=== PATIENT | female | born 1960 | race Caucasian/White ===

== ENCOUNTER → 2019-07-14 10:14 | Outpatient (BNVA) | payer MEDICAID, SELFPAY | PROVIDERS: Family Provider Nurse Practitioner; PCP Nurse Practitioner; Visit Provider Nurse Practitioner | DX: M79.7 Fibromyalgia (principal); E11.65 Type 2 diabetes mellitus with hyperglycemia; Z79.4 Long term (current) use of insulin; E03.9 Hypothyroidism, unspecified; I10 Essential (primary) hypertension; K21.0 Gastro-esophageal reflux disease with esophagitis; J06.9 Acute upper respiratory infection, unspecified; R05 Cough; R07.0 Pain in throat | CPT/HCPCS: 80053; 80061; 83036; 84443; 87804 ==

== ENCOUNTER → 2019-12-08 09:40 | Outpatient (BNVA) | payer MEDICAID, SELFPAY | PROVIDERS: Family Provider Family Medicine; PCP Nurse Practitioner; Visit Provider Nurse Practitioner | DX: E55.9 Vitamin D deficiency, unspecified (principal) | CPT/HCPCS: 82306 ==

== ENCOUNTER 2019-12-09 07:56 | Outpatient (CLI) | payer MEDICAID, SELFPAY ==
--- NOTE | 2019-12-09 08:01 | XR_ITS ---
WS: [id number] RIGHT FOREARM 2 VIEWS HISTORY: Right arm pain COMPARISON: None available. No fracture or dislocation. No foreign body or joint effusion. XR/XR forearm RT 2V [id number] IMPRESSION: Normal RIGHT forearm.
--- NOTE | 2019-12-09 08:01 | XR_ITS ---
WS: [id number] RIGHT HUMERUS: 2 VIEW(S) TECHNIQUE: AP and lateral. HISTORY: Right arm pain COMPARISON: None available. No acute fracture or dislocation. Mild AC joint arthritis. No joint or soft tissue abnormality. No foreign bodies and visualized upper thorax is unremarkable. XR/[place] [id number] IMPRESSION: Mild AC joint arthritis.
--- NOTE | 2019-12-09 08:01 | XR_ITS ---
WS: [id number] CERVICAL SPINE 3 VIEWS HISTORY: Right arm pain COMPARISON: None available. Mild straightening and slight reversal normal cervical lordosis centered at C4-5. Moderate disc space narrowing at C4-5, C5-6 and C6-7. Small endplate osteophytes at all levels. No fracture. Lateral masses are aligned. The odontoid is intact. Soft tissues are normal. XR/XR cervical spine 3V* [id number] IMPRESSION: Moderate degenerative spondylosis most significant from C4 through C6.
== END 2019-12-09 07:57 | disposition home or self-care (01) ==
LOC: RADWPI 07:58
PROVIDERS: Family Provider Nurse Practitioner; PCP Nurse Practitioner; Visit Provider Nurse Practitioner
DX: M79.601 Pain in right arm (principal); M47.812 Spondylosis without myelopathy or radiculopathy, cervical region; M13.821 Other specified arthritis, right elbow
CPT/HCPCS: 72040; 73060; 73090

== ENCOUNTER → 2019-12-31 09:48 | Outpatient (BNVA) | payer MEDICAID, SELFPAY | PROVIDERS: Family Provider Nurse Practitioner; PCP Nurse Practitioner; Visit Provider Nurse Practitioner | DX: E03.9 Hypothyroidism, unspecified (principal); E11.65 Type 2 diabetes mellitus with hyperglycemia; I10 Essential (primary) hypertension; G54.2 Cervical root disorders, not elsewhere classified | CPT/HCPCS: 80053; 80061; 83036; 83721; 84443 ==

== ENCOUNTER → 2020-04-03 11:35 | Outpatient (BNVA) | payer MEDICAID, SELFPAY | PROVIDERS: Family Provider Nurse Practitioner; PCP Nurse Practitioner; Visit Provider Nurse Practitioner | DX: E11.65 Type 2 diabetes mellitus with hyperglycemia (principal); I10 Essential (primary) hypertension; E78.2 Mixed hyperlipidemia; E03.9 Hypothyroidism, unspecified; M79.7 Fibromyalgia; G54.2 Cervical root disorders, not elsewhere classified; Z12.39 Encounter for other screening for malignant neoplasm of breast | CPT/HCPCS: 80053; 80061; 82043; 83036; 84443 ==

== ENCOUNTER 2020-06-12 10:40 | Outpatient (CLI) | payer MEDICAID, SELFPAY ==
--- NOTE | 2020-06-12 10:45 | MM_ITS ---
WS: [id number] BILATERAL DIGITAL SCREENING MAMMOGRAPHY WITH CAD CLINICAL INFORMATION: Z12.39 - Encounter for other screening for malignant neoplasm of breast HISTORY: Screening mammogram. Left breast soreness COMPARISON: TECHNIQUE: Bilateral CC and MLO views. FINDINGS: The breasts are composed of heterogeneous fibroglandular density tissue, which can limit the detectio n of small underlying mass lesions. No suspicious mass, asymmetry, calcifications, or architectural d istortion. No evidence of malignancy. MM/[place] [id number] IMPRESSION: BI-RADS: 1-Negative FOLLOW UP: 1 Year Follow-up Recommend return to annual screening mammography.
== END 2020-06-12 10:41 | disposition home or self-care (01) ==
LOC: RADSHAW 10:42
PROVIDERS: Family Provider Nurse Practitioner; PCP Nurse Practitioner; Visit Provider Nurse Practitioner
DX: Z12.31 Encounter for screening mammogram for malignant neoplasm of breast (principal)
CPT/HCPCS: 77067

== ENCOUNTER → 2020-06-16 09:51 | Outpatient (BNVA) | payer MEDICAID, SELFPAY | PROVIDERS: Family Provider Nurse Practitioner; PCP Nurse Practitioner; Visit Provider Nurse Practitioner | DX: Z20.828 Contact with and (suspected) exposure to other viral communicable diseases (principal); M79.7 Fibromyalgia; R68.83 Chills (without fever); J06.9 Acute upper respiratory infection, unspecified; I10 Essential (primary) hypertension | CPT/HCPCS: 85025; 87400; 87635 ==

== ENCOUNTER → 2020-07-17 10:17 | Outpatient (BNVA) | payer MEDICAID, SELFPAY | PROVIDERS: PCP Nurse Practitioner; Visit Provider Nurse Practitioner | DX: E11.65 Type 2 diabetes mellitus with hyperglycemia (principal); I10 Essential (primary) hypertension; E78.2 Mixed hyperlipidemia; E03.9 Hypothyroidism, unspecified; G54.2 Cervical root disorders, not elsewhere classified; M79.7 Fibromyalgia; K21.00 Gastro-esophageal reflux disease with esophagitis, without bleeding | CPT/HCPCS: 80053; 80061; 82043; 83036; 84443 ==

== ENCOUNTER → 2021-01-08 09:00 | Outpatient (BNVA) | payer MEDICAID, SELFPAY | PROVIDERS: PCP Nurse Practitioner; Visit Provider Nurse Practitioner | DX: E11.65 Type 2 diabetes mellitus with hyperglycemia (principal); I10 Essential (primary) hypertension; G54.2 Cervical root disorders, not elsewhere classified; E55.9 Vitamin D deficiency, unspecified; E78.2 Mixed hyperlipidemia; E03.9 Hypothyroidism, unspecified | CPT/HCPCS: 80053; 80061; 81000; 82043; 82306; 82607; 83036; 84443 ==

== ENCOUNTER → 2021-01-25 11:15 | Outpatient (BNVA) | payer MEDICAID, SELFPAY | PROVIDERS: PCP Nurse Practitioner; Visit Provider Nurse Practitioner | DX: Z20.822 Contact with and (suspected) exposure to COVID-19 (principal); R50.9 Fever, unspecified | CPT/HCPCS: 87635 ==

== ENCOUNTER → 2021-03-16 08:41 | Outpatient (BNVA) | payer MEDICAID, SELFPAY | PROVIDERS: PCP Nurse Practitioner; Visit Provider Nurse Practitioner Family | DX: R11.2 Nausea with vomiting, unspecified (principal); K52.9 Noninfective gastroenteritis and colitis, unspecified | CPT/HCPCS: 80053; 85025; 87177; 87209; 87506 ==

== ENCOUNTER → 2021-04-02 09:11 | Outpatient (BNVA) | payer MEDICAID, SELFPAY | PROVIDERS: PCP Nurse Practitioner; Visit Provider Nurse Practitioner | DX: E11.65 Type 2 diabetes mellitus with hyperglycemia (principal) | CPT/HCPCS: 80053; 81000; 83036 ==

== ENCOUNTER → 2021-06-25 08:50 | Outpatient (BNVA) | payer MEDICAID, SELFPAY | PROVIDERS: PCP Nurse Practitioner; Visit Provider Nurse Practitioner | DX: E11.65 Type 2 diabetes mellitus with hyperglycemia (principal); E03.9 Hypothyroidism, unspecified; E78.2 Mixed hyperlipidemia; I10 Essential (primary) hypertension; G54.2 Cervical root disorders, not elsewhere classified; R74.8 Abnormal levels of other serum enzymes; J06.9 Acute upper respiratory infection, unspecified | CPT/HCPCS: 80053; 80061; 81000; 83036; 84443 ==

== ENCOUNTER → 2021-07-24 13:32 | Outpatient (BNVA) | payer MEDICAID, SELFPAY | PROVIDERS: PCP Nurse Practitioner; Visit Provider Physician Assistant | DX: E83.52 Hypercalcemia (principal) | CPT/HCPCS: 80069; 82306; 82310; 83970; 84155; 84165 ==

== ENCOUNTER 2021-07-30 06:16 | Outpatient (CLI) | payer MEDICAID, SELFPAY ==
--- NOTE | 2021-07-30 06:15 | US_ITS ---
WS: [id number] RIGHT UPPER QUADRANT ULTRASOUND HISTORY: R74.8 - Abnormal levels of other serum enzymes COMPARISON: 07/01/2012 Liver: 16.1 cm in length. Normal size liver. Mild to moderate coarse echogenicity and slight nodulari ty along the surface of the liver. No mass or bile duct dilatation. Portal Vein: Normal hepatopetal flow with monophasic waveform. Gallbladder: Normally distended with several large stones. No pericholecystic fluid. CBD: 0.6 cm Pancreas: Normal size and echogenicity. Right kidney: 9.8 cm in length. Normal size and echogenicity. No hydronephrosis or mass. Aorta and IVC: Unremarkable abdominal aorta and IVC. No ascites. US/US liver [id number] IMPRESSION: 1. Cholelithiasis without acute cholecystitis. 2. Hepatocellular disease, probably cirrhosis. Similar but mild progression si nce the prior study.
== END 2021-07-30 06:17 | disposition home or self-care (01) ==
LOC: RAD 06:16
PROVIDERS: PCP Nurse Practitioner; Visit Provider Nurse Practitioner
DX: R74.8 Abnormal levels of other serum enzymes (principal); K80.20 Calculus of gallbladder without cholecystitis without obstruction; K76.9 Liver disease, unspecified
CPT/HCPCS: 76705

== ENCOUNTER 2021-09-07 19:15 | Emergency (ER) | payer MEDICAID, SELFPAY ==
[2021-09-07 19:27] VITALS: BP 164/96; PULSE 89; RESP 18; TEMP 36.6; O2SAT 97; BMI 24.4
--- NOTE | 2021-09-07 19:41 | ED_ITS ---
Documented by User: MITESH Hines 09/07/21 21:12 HPI - Neck Pain/Injury General: Chief Complaint: Neck Pain/Injury Stated Complaint: stiff neck an shoulders Time Seen by Provider: 09/07/21 19:41 History of Present Illness: 61-year-old female comes in today with complaints of left-sided neck pain radiating into her left shoulder. Patient reports increased pain with movement of the neck and the shoulder. Patient appears nontoxic. Patient appears in moderate to severe pain. Pain is exacerbated with movement of the neck and the shoulder. Patient denies any falls or injury. Patient reports pain started this morning when she woke up and has worsened throughout the day. Patient has tried doij-kia-wojabsr muscle rub with minimal relief. Patient does have a history of chronic neck pain. Associated symptoms: Reports headache(s) Review of Systems General: Reports: 10 or more systems reviewed and unremarkable except in HPI and below Const: Denies: fever(s) ENMT: Denies: throat pain Card: Denies: chest pain Resp: Denies: dyspnea GI: Denies: abdominal pain Musc: Reports: neck pain Skin/Breast: Denies: rash Neuro: Reports: headache(s) Psych: Denies: depression PFSH ED PFSH: Medical History (Updated 09/07/21 @ 21:02 by MITESH Hines) Controlled type 2 diabetes mellitus with hyperglycemia, without long-term current use of insulin Fibromyalgia Gastro-esophageal reflux disease with esophagitis Graves disease History of mammogram 2019 Hypertension Hypothyroidism (acquired) Vitamin D deficiency Surgical History History of back surgery History of carpal tunnel surgery History of colonoscopy 2013 History of hysterectomy Family History Other Diabetes Heart disease Social History Smoking and tobacco status: never smoked Second hand smoke exposure: No Smoking risk assessment/counseling performed?: No Alcohol intake: never Desire information about alcohol rehabilitation?: No Counseling given: No Desire information about substance/drug rehabilitation?: No Counseling given: No Adopted: No Caregiver/support person: No Lives independently: Yes Household members: significant other Marital status: service: No Current occupational status: unemployed History of recent travel: No Current gender identity: Female Physical Exam Const: COMMON NORMALS: alert HENMT: COMMON NORMALS: normocephalic HEAD & SCALP: normocephalic MOUTH: Normal oral and palatal mucosa present Neck/C-Spine: CERVICAL SPINE: No step off deformity, Yes Paracervical muscle tenderness left, Yes Paracervical spasm left and Yes Trapezius muscle tenderness Lymph: LYMPHATIC: no lymphadenopathy noted Resp: COMMON NORMALS: normal respiratory effort and clear to auscultation bilaterally AUSCULTATION: clear to auscultation bilaterally Cardio: COMMON NORMALS: regular rate and regular rhythm RATE: regular rate RHYTHM: regular rhythm : COMMON NORMALS: Yes no CVA tenderness BLADDER/KIDNEY EXAM: Yes no CVA tenderness Back/Pelvis: COMMON NORMALS: no CVA tenderness Extremity: COMMON NORMALS: normal to inspection Neuro: SENSORIUM/ORIENTATION: Yes alert Course Vital Signs: Vital signs: Vital Signs Temperature 97.9 F 09/07/21 21:01 Pulse Rate 93 09/07/21 21:01 Respiratory Rate 17 09/07/21 21:01 Blood Pressure 128/76 09/07/21 21:01 Pulse Oximetry 93 09/07/21 21:01 MDM - Neck Pain/Injury Medical Decision Making 61-year-old female comes in today with complaints of pain in the neck with decreased range of motion. On exam patient has muscle tenderness and tightness to the left side of the cervical spine. Also muscle tenderness is noted in the left trapezius. No step-off or significant cervical spine tenderness is noted. Differential diagnosis includes intervertebral disc disease, facet arthropathy, cervical radiculopathy. CT of the neck indicated no significant foraminal stenosis. There was some degenerative disc disease. Patient was given 1 7-1/2 mg hydrocodone, 30 mg of Toradol, and 60 mg orphenadrine with good results for pain control. Patient be continued on diclofenac and hydrocodone for pain relief and inflammation. Reviewed exam with patient with recommendations for follow-up with primary care for further evaluation and treatment. Patient reported understanding and agreed to plan. Lab Data Radiology Impressions Cervical Spine CT 09/07/21 19:54 IMPRESSION: No acute spinal abnormality. Moderate degenerative changes described above. Discharge Plan Discharge Patient Disposition: Home Clinical Impression: Disc disorder of cervical region Condition: Stable Prescriptions: New hydrocodone-acetaminophen 5-325 mg tablet 1 tab PO Q8H PRN (Reason: pain (scale score 7-10)) Qty: 7 0RF diclofenac sodium 50 mg tablet,delayed release (DR/EC) 50 mg PO Q12H Qty: 20 0RF No Action (DME) blood sugar diagnostic Strip See Rx Instructions .ROUTE .MEDSUPPLY Qty: 100 5RF Rx Instructions: 1 strip daily (DME) lancets [OneTouch Delica Lancets] 33 gauge misc See Rx Instructions .ROUTE .MEDSUPPLY Qty: 100 5RF Rx Instructions: use one daily fenofibrate nanocrystallized [Tricor] 145 mg tablet 145 mg PO DAILY Qty: 30 2RF levothyroxine 100 mcg tablet 100 mcg PO DAILY Qty: 30 2RF magnesium oxide 400 mg (241.3 mg magnesium) tablet 400 mg PO BID Qty: 60 2RF metoprolol tartrate 25 mg tablet 25 mg PO DAILY Qty: 30 2RF zonisamide [Zonegran] 25 mg capsule 25 mg PO Q12H Qty: 60 2RF promethazine-DM 6.25-15 mg/5 mL syrup 5 ml PO Q6H PRN (Reason: cough) Qty: 120 0RF aspirin [Aspir-81] 81 mg tablet,delayed release (DR/EC) 81 mg PO DAILY 0RF ondansetron 8 mg tablet,disintegrating 8 mg PO Q8H PRN (Reason: nausea and vomiting) Qty: 21 0RF (DME) OneTouch Ultra Test Strip See Rx Instructions .Route Qty: 50 5RF Rx Instructions: one daily Jardiance 10 mg tablet 10 mg PO QAM Qty: 30 1RF Discharge Orders: Discharge ED (Routine); Ordered 09/07/21 Ordered By: Omega Null Referrals: Lorena Copeland, [facility] OPERATOR-C [Primary Care Provider] - Discharge Diet: Usual diet Discharge Activity: Increase activity as tolerated Patient Instructions: Neck Pain (ED), Opioid Safety Activity Restrictions/Additional Instructions: Use medication as directed. Use diclofenac routinely for the next 5 to 10 days for pain and inflammation. Use acetaminophen, [id number] Tylenol, as needed for further pain control. Use hydrocodone as needed for severe pain. Continue with ice or heat to the area of pain for further control. Drink plenty of water with medication. Follow-up with primary care for further instruction. Return to ER for new concerns. Coding Level of Care Code ED Briquetting Machine Operator for Chg Fwd Exam Comprehensive Documented by User: Varun Agee, DO 09/07/21 22:28 HPI - Neck Pain/Injury General: Chief Complaint: Neck Pain/Injury Stated Complaint: stiff neck an shoulders Time Seen by Provider: 09/07/21 19:41 [facility] ED PFSH: Medical History (Updated 09/07/21 @ 21:02 by MITESH Hines) Controlled type 2 diabetes mellitus with hyperglycemia, without long-term current use of insulin Fibromyalgia Gastro-esophageal reflux disease with esophagitis Graves disease History of mammogram 2019 Hypertension Hypothyroidism (acquired) Vitamin D deficiency Surgical History History of back surgery History of carpal tunnel surgery History of colonoscopy 2013 History of hysterectomy Family History Other Diabetes Heart disease Social History Smoking and tobacco status: never smoked Second hand smoke exposure: No Smoking risk assessment/counseling performed?: No Alcohol intake: never Desire information about alcohol rehabilitation?: No Counseling given: No Desire information about substance/drug rehabilitation?: No Counseling given: No Adopted: No Caregiver/support person: No Lives independently: Yes Household members: significant other Marital status: service: No Current occupational status: unemployed History of recent travel: No Current gender identity: Female Course Vital Signs: Vital signs: Vital Signs Temperature 97.9 F 09/07/21 21:01 Pulse Rate 93 09/07/21 21:01 Respiratory Rate 17 09/07/21 21:01 Blood Pressure 128/76 09/07/21 21:01 Pulse Oximetry 93 09/07/21 21:01 MDM - Neck Pain/Injury Medical Decision Making 61-year-old female comes in today with complaints of pain in the neck with decreased range of motion. On exam patient has muscle tenderness and tightness to the left side of the cervical spine. Also muscle tenderness is noted in the left trapezius. No step-off or significant cervical spine tenderness is noted. Differential diagnosis includes intervertebral disc disease, facet arthropathy, cervical radiculopathy. CT of the neck indicated no significant foraminal stenosis. There was some degenerative disc disease. Patient was given 1 7-1/2 mg hydrocodone, 30 mg of Toradol, and 60 mg orphenadrine with good results for pain control. Patient be continued on diclofenac and hydrocodone for pain relief and inflammation. Reviewed exam with patient with recommendations for follow-up with primary care for further evaluation and treatment. Patient reported understanding and agreed to plan. This patient was originally seen by MITESH Kasper.? I agree with his history, evaluation, and treatment. Lab Data Radiology Impressions Cervical Spine CT 09/07/21 19:54 IMPRESSION: No acute spinal abnormality. Moderate degenerative changes described above. Discharge Plan Discharge Patient Disposition: Home Clinical Impression: Disc disorder of cervical region Condition: Stable Prescriptions: New hydrocodone-acetaminophen 5-325 mg tablet 1 tab PO Q8H PRN (Reason: pain (scale score 7-10)) Qty: 7 0RF diclofenac sodium 50 mg tablet,delayed release (DR/EC) 50 mg PO Q12H Qty: 20 0RF No Action (DME) blood sugar diagnostic Strip See Rx Instructions .ROUTE .MEDSUPPLY Qty: 100 5RF Rx Instructions: 1 strip daily (DME) lancets [OneTouch Delica Lancets] 33 gauge misc See Rx Instructions .ROUTE .MEDSUPPLY Qty: 100 5RF Rx Instructions: use one daily fenofibrate nanocrystallized [Tricor] 145 mg tablet 145 mg PO DAILY Qty: 30 2RF levothyroxine 100 mcg tablet 100 mcg PO DAILY Qty: 30 2RF magnesium oxide 400 mg (241.3 mg magnesium) tablet 400 mg PO BID Qty: 60 2RF metoprolol tartrate 25 mg tablet 25 mg PO DAILY Qty: 30 2RF zonisamide [Zonegran] 25 mg capsule 25 mg PO Q12H Qty: 60 2RF promethazine-DM 6.25-15 mg/5 mL syrup 5 ml PO Q6H PRN (Reason: cough) Qty: 120 0RF aspirin [Aspir-81] 81 mg tablet,delayed release (DR/EC) 81 mg PO DAILY 0RF ondansetron 8 mg tablet,disintegrating 8 mg PO Q8H PRN (Reason: nausea and vomiting) Qty: 21 0RF (DME) OneTouch Ultra Test Strip See Rx Instructions .Route Qty: 50 5RF Rx Instructions: one daily Jardiance 10 mg tablet 10 mg PO QAM Qty: 30 1RF Discharge Orders: Discharge ED (Routine); Ordered 09/07/21 Ordered By: Omega Null Referrals: Lorena Copeland, DEGRE[employer]ING WHEEL OPERATOR-C [Primary Care Provider] - Discharge Diet: Usual diet Discharge Activity: Increase activity as tolerated Patient Instructions: Neck Pain (ED), Opioid Safety Activity Restrictions/Additional Instructions: Use medication as directed. Use diclofenac routinely for the next 5 to 10 days for pain and inflammation. Use acetaminophen, [id number] Tylenol, as needed for further pain control. Use hydrocodone as needed for severe pain. Continue with ice or heat to the area of pain for further control. Drink plenty of water with medication. Follow-up with primary care for further instruction. Return to ER for new concerns. Coding Level of Care Code ED Briquetting Machine Operator for Shaneka Fwsocorro Exam Comprehensive
--- NOTE | 2021-09-07 19:54 | CTR_ITS ---
PROCEDURE INFORMATION: Exam: CT Cervical Spine Without Contrast Exam date and time: 09/07/2021 8:11 PM Age: 61 years old Clinical indication: Neck pain and radicular pain (radiculopathy); Cervical region; Patient HX: C/O neck and lue pain w/o injury - woke up like this; Additional info: Cervical radiculopathy TECHNIQUE: Imaging protocol: Computed tomography images of the cervical spine without contrast. Radiation optimization: All CT scans at this facility use at least one of these dose optimization techniques: automated exposure control; mA and/or kV adjustment per patient size (includes targeted exams where dose is matched to clinical indication); or iterative reconstruction. COMPARISON: CR XR cervical spine 3V* [id number] 12/09/2019 8:15 AM RADIATION DOSE METRICS: Total DLP (mGy-cm): 382.99 FINDINGS: Vertebrae: There are moderate degenerative changes at C4-C5 through C6-C7. Normal alignment. No acute fractures. Soft tissues: Unremarkable. Lungs: Lung apices are normal. CT/CT cervical spin wo con* [id number] IMPRESSION: No acute spinal abnormality. Moderate degenerative changes described above.
[2021-09-07] MEDS: orphenadrine 30 mg/mL Inj 2 mL 60 MG IM (20:44)
[2021-09-07] MEDS: ketorolac 30 mg/mL INJ IM (20:44)
[2021-09-07] MEDS: HYDROcodone-acetaminophen 7.5-325 mg Tablet 1 TAB PO (20:45)
[2021-09-07 21:01] VITALS: BP 128/76; PULSE 93; RESP 17; TEMP 36.6; O2SAT 93
== END 2021-09-07 21:10 | disposition home or self-care (01) ==
PROVIDERS: Emergency Provider Nurse Practitioner Family; PCP Nurse Practitioner
DX: M50.90 Cervical disc disorder, unspecified, unspecified cervical region (principal); Z79.82 Long term (current) use of aspirin; E11.9 Type 2 diabetes mellitus without complications; I10 Essential (primary) hypertension
CPT/HCPCS: 72125; 96372; 99283; J1885; J2360

== ENCOUNTER → 2021-09-10 09:29 | Outpatient (BNVA) | payer MEDICAID, SELFPAY | PROVIDERS: PCP Nurse Practitioner; Visit Provider Nurse Practitioner | DX: G54.2 Cervical root disorders, not elsewhere classified (principal); E11.65 Type 2 diabetes mellitus with hyperglycemia; E78.2 Mixed hyperlipidemia; E03.9 Hypothyroidism, unspecified; I10 Essential (primary) hypertension; K21.00 Gastro-esophageal reflux disease with esophagitis, without bleeding | CPT/HCPCS: 80053; 81000; 83036; 83735 ==

== ENCOUNTER → 2021-12-03 10:11 | Outpatient (BNVA) | payer MEDICAID, SELFPAY | PROVIDERS: PCP Nurse Practitioner; Visit Provider Nurse Practitioner | DX: F41.1 Generalized anxiety disorder (principal); E11.65 Type 2 diabetes mellitus with hyperglycemia; E03.9 Hypothyroidism, unspecified; I10 Essential (primary) hypertension | CPT/HCPCS: 80053; 80061; 81000; 83036 ==

== ENCOUNTER → 2022-01-28 10:44 | Outpatient (BNVA) | payer MEDICAID, SELFPAY | PROVIDERS: PCP Nurse Practitioner; Visit Provider Nurse Practitioner | DX: R05.9 Cough, unspecified (principal); Z20.822 Contact with and (suspected) exposure to COVID-19 | CPT/HCPCS: 87426 ==

== ENCOUNTER → 2022-02-25 09:49 | Outpatient (BNVA) | payer MEDICAID, SELFPAY | PROVIDERS: PCP Nurse Practitioner; Visit Provider Nurse Practitioner | DX: E11.65 Type 2 diabetes mellitus with hyperglycemia (principal); E78.2 Mixed hyperlipidemia; J31.0 Chronic rhinitis; E03.9 Hypothyroidism, unspecified; F41.1 Generalized anxiety disorder; G54.2 Cervical root disorders, not elsewhere classified | CPT/HCPCS: 80053; 80061; 81000; 83036; 84443 ==

== ENCOUNTER 2022-04-12 08:57 | Outpatient (CLI) | payer MEDICAID, SELFPAY ==
--- NOTE | 2022-04-12 09:04 | MM_ITS ---
WS: [id number] BILATERAL SCREENING DIGITAL TOMOSYNTHESIS MAMMOGRAM WITH CAD HISTORY: Z12.39 - Encounter for other screening for malignant neoplasm... COMPARISON: 06/12/2020, 08/26/2018 Bilateral CC and MLO views with tomosynthesis and synthetic mammography submitted. Computer aided det ection analyzed. Breast composition: There are scattered areas of fibroglandular density. No suspicious masses, microc alcifications or architectural distortion. MM/[place] [id number] IMPRESSION: BI-RADS: 1-Negative FOLLOW UP: 1 Year Follow-up
== END 2022-04-12 08:58 | disposition home or self-care (01) ==
LOC: RAD 08:57
PROVIDERS: PCP Nurse Practitioner; Visit Provider Nurse Practitioner
DX: Z12.31 Encounter for screening mammogram for malignant neoplasm of breast (principal)
CPT/HCPCS: 77063; 77067

== ENCOUNTER → 2022-05-20 09:18 | Outpatient (BNVA) | payer MEDICAID, SELFPAY | PROVIDERS: PCP Nurse Practitioner; Visit Provider Nurse Practitioner | DX: I10 Essential (primary) hypertension (principal); E03.9 Hypothyroidism, unspecified | CPT/HCPCS: 80053; 81000; 85025 ==

== ENCOUNTER 2022-07-02 18:14 | Emergency (ER) | payer MEDICAID, SELFPAY ==
[2022-07-02 18:17] VITALS: BP 181/85; PULSE 78; RESP 17; TEMP 37.1; O2SAT 98; BMI 25.7
--- NOTE | 2022-07-02 19:13 | XRR_ITS ---
PROCEDURE INFORMATION: Exam: XR Left Shoulder Exam date and time: 07/02/2022 7:37 PM Age: 62 years old Clinical indication: Injury or trauma; Fall; Blunt trauma (contusions or hematomas); Patient HX: PT fell today. Hitting head and left shoulder/elbow. C/O pain and pain with movement L shoulder/elbow; Additional info: Fall with shoulder pain TECHNIQUE: Imaging protocol: Radiologic exam of the left shoulder. Views: 2 or more views. COMPARISON: CT cervical spin wo con* [id number] 09/07/2021 8:11 PM FINDINGS: Bones/joints: The AP image is limited. The proximal humerus appears elevated suggesting possible rotator cuff pathology. Mild arthritis is seen in the left AC joint. No definite acute fracture or dislocation. Soft tissues: Normal. XR/XR shoulder LT min 2V* [id number] IMPRESSION: Degenerative changes. No definite acute osseous injury.
--- NOTE | 2022-07-02 19:13 | CTR_ITS ---
PROCEDURE INFORMATION: Exam: CT Head Without Contrast Exam date and time: 07/02/2022 8:56 PM Age: 62 years old Clinical indication: Injury or trauma; Fall; Blunt trauma (contusions or hematomas); Additional info: Fall and hit head on concrete-severe headache, -loc. RT posterior head bump TECHNIQUE: Imaging protocol: Computed tomography of the head without contrast. Radiation optimization: All CT scans at this facility use at least one of these dose optimization techniques: automated exposure control; mA and/or kV adjustment per patient size (includes targeted exams where dose is matched to clinical indication); or iterative reconstruction. REPORTING DATA: Count of CT and Cardiac NM exams in prior 12 months: This patient has received [address] and 0 known cardiac nuclear medicine studies in the 12 months prior to the current study. COMPARISON: CT cervical spin wo con* [id number] 09/07/2021 8:11 PM RADIATION DOSE METRICS: Total DLP (mGy-cm): 941.18 FINDINGS: Brain: Normal. No hemorrhage. Unremarkable white matter. No mass effect. Cerebral ventricles: No ventriculomegaly. Paranasal sinuses: Visualized sinuses are unremarkable. No fluid levels. Mastoid air cells: Visualized mastoid air cells are well aerated. Bones/joints: Unremarkable. No acute fracture. Soft tissues: Moderate right parietal scalp soft tissue hematoma near the vertex. CT/CT head wo con* [id number] IMPRESSION: 1. No acute intracranial abnormality. 2. Moderate right parietal scalp soft tissue hematoma near the vertex.
--- NOTE | 2022-07-02 19:13 | XRR_ITS ---
PROCEDURE INFORMATION: Exam: XR Left Elbow Exam date and time: 07/02/2022 7:37 PM Age: 62 years old Clinical indication: Injury or trauma; Fall; Blunt trauma (contusions or hematomas); Patient HX: PT fell today hitting head, and left shoulder/elbow. C/O pain and pain with movement; Additional info: Fall with elbow pain TECHNIQUE: Imaging protocol: Radiologic exam of the left elbow. Views: 3 or more views. COMPARISON: No relevant prior studies available. FINDINGS: Bones/joints: The ulna humeral joint has moderate arthritis. No effusion. Normal alignment. No acute fracture or dislocation. Soft tissues: Normal. XR/XR elbow LT min 3V* [id number] IMPRESSION: Degenerative changes. No acute injury.
--- NOTE | 2022-07-02 19:15 | ED_ITS ---
HPI - Extremity Problem General: Chief complaint: Extremity Injury, Upper Stated complaint: fall/hit head, left arm Time Seen by Provider: 07/02/22 18:51 History of Present Illness: Patient is a 62-year-old female comes to the ED with fall injury. Fall injury occurred around 5 PM tonight. She was leaving a friend's house and tripped falling and hitting her left elbow and shoulder on concrete. Patient also states her head hit concrete as well. Denies any loss of consciousness. She was able to get right back up after fall. Since fall she having a severe headache that she rates an 8 out of 10 that is throbbing in the back of her head. Denies any vision changes, numbness tingling or weakness to 1 side of her face or body. She also has 8 out of 10 pain in her left shoulder and left elbow. She has not been able to move left arm much due to pain since fall. Patient takes 81 mg of aspirin daily but denies any other blood thinners. Endorses nausea. Associated symptoms: Deny chest pain, fever(s) or rash Review of Systems Const: Denies: fever(s), chills or fatigue Eyes: Denies: change in vision or eye discomfort ENMT: Denies: throat pain, odynophagia, nasal discharge or nasal congestion Card: Denies: chest pain, palpitations, edema, swelling of feet/ankles, dyspnea on exertion or orthopnea Resp: Denies: dyspnea, productive cough or non-productive cough GI: Reports: nausea; Denies: abdominal pain, vomiting, diarrhea, constipation or hematochezia : Denies: flank pain, dysuria or hematuria Musc: Reports: extremity pain (Left elbow and left shoulder pain) and limited range of motion (Left arm); Denies: neck pain, back pain or extremity swelling Skin/Breast: Denies: rash or new lesions Neuro: Reports: headache(s); Denies: numbness in extremities or weakness in extremities PFSH ED PFSH: Medical History Controlled type 2 diabetes mellitus with hyperglycemia, without long-term current use of insulin Fibromyalgia Gastro-esophageal reflux disease with esophagitis Graves disease History of mammogram 2019 Hypertension Hypothyroidism (acquired) Vitamin D deficiency Surgical History History of back surgery History of carpal tunnel surgery History of colonoscopy 2013 History of hysterectomy Family History Other Diabetes Heart disease Social History Smoking and tobacco status: never smoked Second hand smoke exposure: No Smoking risk assessment/counseling performed?: No Alcohol intake: never Desire information about alcohol rehabilitation?: No Counseling given: No Desire information about substance/drug rehabilitation?: No Counseling given: No Adopted: No Caregiver/support person: No Lives independently: Yes Household members: significant other Marital status: service: No Current occupational status: unemployed Current gender identity: Female Physical Exam Const: COMMON NORMALS: patient oriented x3 and alert GENERAL APPEARANCE: cooperative HENMT: COMMON NORMALS: normocephalic HEAD & SCALP: normocephalic and hematoma vertex Head hematoma size: 1.5 cm MOUTH: Normal oral and palatal mucosa present THROAT: posterior oropharynx normal and uvula midline Eye: COMMON NORMALS: Equal, round and reactive pupils present, EOMs intact bilaterally and conjunctivae normal CONJUNCTIVA: Yes conjunctivae normal PUPIL: Yes Equal, round and reactive pupils present Neck/C-Spine: COMMON NORMALS: supple GENERAL: Yes normal visual inspection Resp: COMMON NORMALS: normal respiratory effort, No retractions, No use of accessory muscles and clear to auscultation bilaterally AUSCULTATION: clear to auscultation bilaterally Cardio: COMMON NORMALS: regular rate, regular rhythm, S1 normal heart sound present, S2 normal heart sound present, No gallops present (Cardio), No clicks present (Cardio), No murmurs present (Cardio) and Peripheral pulses 2+ throughout RATE: regular rate RHYTHM: regular rhythm HEART SOUNDS: S1 normal heart sound present and S2 normal heart sound present PERIPHERAL PULSES: Peripheral pulses 2+ throughout GI: COMMON NORMALS: Normal to inspection, nondistended, normoactive bowel sounds present, Soft to palpation, non-tender and no masses PALPATION: Yes Soft to palpation : COMMON NORMALS: Yes no CVA tenderness BLADDER/KIDNEY EXAM: Yes no CVA tenderness Back/Pelvis: COMMON NORMALS: no CVA tenderness Extremity: NARRATIVE EXTREMITY EXAM: Left shoulder?patient has left arm bent and held close to body. No visible deformity noted. Tenderness over proximal head of humerus. Limited range of motion due to pain. Neurovascular intact distally. Tenderness throughout left elbow. Mild ecchymosis and swelling noted. Neuro: COMMON NORMALS: patient oriented x3, CN's II-XII intact bilaterally, moves all extremities and gait normal SENSORIUM/ORIENTATION: Yes alert SPEECH: speech normal GAIT: Yes Normal gait present Skin: GENERAL SKIN EXAM: dry skin Course Vital Signs: Vital signs: Vital Signs Temperature 98.8 F 07/02/22 18:17 Pulse Rate 78 07/02/22 18:17 Respiratory Rate 17 07/02/22 18:17 Blood Pressure 181/85 07/02/22 18:17 Pulse Oximetry 98 07/02/22 18:17 Oxygen Delivery Me thod 07/02/22 18:17 MDM - Extremity (Nontraumatic) Medical Decision Making Patient is a 62-year-old female comes to the ED with fall injury. She fell from standing position after tripping and hit head on concrete and also hit left shoulder on concrete as well. She is complaining of having a severe headache and 8 out of 10 pain in her left shoulder and left elbow. Denies loss of consciousness and any neurological deficits. Vitals are stable. Neuro exam is intact. Hematoma on vertex of scalp approximately 2 cm in size. She has some tenderness over left proximal head of humerus. Tenderness, swelling and ecchymosis left elbow. Limited range of motion in left shoulder due to pain. Neurovascular intact distally. CT of head shows no acute findings but does note the moderate scalp hematoma near the vertex of head. Elbow and shoulder x-ray showed no acute fractures. Given patient's limited range of motion in left shoulder I am going to place her in a shoulder sling and referred to Ortho for follow-up. She was diagnosed with left shoulder injury, contusion of left elbow and hematoma of scalp. Patient was sent home with a prescription for hydrocodone to help with pain. Return ED precautions given. Patient understood and agreed with plan. Lab Data Radiology Impressions Elbow X-Ray 07/02/22 19:13 IMPRESSION: Degenerative changes. No acute injury. Head CT 07/02/22 19:13 IMPRESSION: 1. No acute intracranial abnormality. 2. Moderate right parietal scalp soft tissue hematoma near the vertex. Shoulder X-Ray 07/02/22 19:13 IMPRESSION: Degenerative changes. No definite acute osseous injury. Discharge Plan Discharge Patient Disposition: Home Clinical Impression: Injury of left shoulder Qualifiers: Encounter type: initial encounter Qualified Code(s): S49.92XA - Unspecified injury of left shoulder and upper arm, initial encounter Contusion of left elbow Qualifiers: Encounter type: initial encounter Qualified Code(s): S50.02XA - Contusion of left elbow, initial encounter Hematoma of scalp Qualifiers: Encounter type: initial encounter Qualified Code(s): S00.03XA - Contusion of scalp, initial encounter Condition: Stable Prescriptions: No Action (DME) blood sugar diagnostic Strip See Rx Instructions .ROUTE .MEDSUPPLY Qty: 100 5RF Rx Instructions: 1 strip daily aspirin [Aspir-81] 81 mg tablet,delayed release (DR/EC) 81 mg PO DAILY (DME) OneTouch Ultra Test Strip See Rx Instructions .Route Qty: 50 5RF Rx Instructions: one daily fluticasone propionate [Flonase Allergy Relief] 50 mcg/actuation spray,suspension 1 spray intranasal Q12H Qty: 16 0RF Rx Instructions: administer into each nostril diclofenac sodium [Voltaren Arthritis Pain] 1 % gel 2 g topical QID Qty: 100 0RF Rx Instructions: apply to neck and upper back Jardiance 10 mg tablet 10 mg PO QAM Qty: 30 2RF fenofibrate nanocrystallized [Tricor] 145 mg tablet 145 mg PO DAILY Qty: 30 2RF levothyroxine 100 mcg tablet 100 mcg PO DAILY Qty: 30 2RF zonisamide 100 mg capsule 100 mg PO Q12H Qty: 60 2RF metoprolol tartrate 25 mg tablet 12.5 mg PO DAILY Qty: 15 0RF (DME) lancets [OneTouch Delica Plus Lancet] 33 gauge misc See Rx Instructions .ROUTE .COMPLEX Qty: 100 5RF Dose Instruction: USE ONCE daily Rx Instructions: USE ONCE daily Discharge Orders: Discharge ED (Routine); Ordered 07/02/22 Ordered By: Malik Rosario Referrals: Lorena Copeland FNP-C [Primary Care Provider] - Discharge Diet: Regular Discharge Activity: Limit activity as instructed Patient Instructions: Shoulder Pain (ED), Opioid Safety Activity Restrictions/Additional Instructions: Follow-up with medical provider as directed. Case management should be contacted in the next several days to set up an appointment with Ortho for follow-up on left shoulder injury. Wear left arm sling to help with symptoms. You can remove left arm from sling and do some mild range of motion exercises to prevent frozen shoulder. Take medications as prescribed. Return to the ER or your medical provider if condition worsens. Please read and understand discharge instructions. Thank you for choosing [facility] for your healthcare needs today. Please realize this is an emergency room and that we are providing you with a medical screening exam and this may not be complete and all inclusive of all the testing and or work up that you may need to determine your ailment or severity of your illness. It is very important that you follow up as instructed or that you return to the Emergency Department should you have concerns or if your condition changes or worsens in any way. Coding Level of Care Code ED Speech Pathologist Assistant for Shaneka Crum
[2022-07-02] MEDS: ondansetron 4 MG Tablet PO (19:32)
[2022-07-02] MEDS: HYDROcodone-acetaminophen 7.5-325 mg Tablet 1 TAB PO (19:32)
[2022-07-02] MEDS: orphenadrine 30 mg/mL Inj 2 mL 60 MG IM (19:32)
--- NOTE | 2022-07-03 09:16 | DCPLANNER ---
Addendum entered by Josephine Feliz 07/10/22 08:15: Patient had an appointment with ortho - patient did attend appointment Addendum entered by Josephine Feliz 07/04/22 07:47: Patient has a follow up appointment scheduled for Saturday, July 09, [address]22 at 9:[address] Patricia at ortho. Clinic will call patient with appointment information. Original Note: manager metal had message to schedule a follow up appointment for patient with ortho. manager metal sent patients information to the front office staff at ortho. Patients information will be printed and reviewed. Clinic will call patient with appointment information.
== END 2022-07-02 21:42 | disposition home or self-care (01) ==
PROVIDERS: Emergency Provider Physician Assistant; PCP Nurse Practitioner
DX: S50.02XA Contusion of left elbow, initial encounter (principal); S00.03XA Contusion of scalp, initial encounter; S49.92XA Unspecified injury of left shoulder and upper arm, initial encounter; Z79.82 Long term (current) use of aspirin; E11.9 Type 2 diabetes mellitus without complications; I10 Essential (primary) hypertension; W01.198A Fall on same level from slipping, tripping and stumbling with subsequent striking against other object, initial encounter
CPT/HCPCS: 70450; 73030; 73080; 96372; 99284; J2360; Q0162

== ENCOUNTER → 2022-07-09 08:55 | Outpatient (BNVA) | payer MEDICAID, SELFPAY | PROVIDERS: PCP Nurse Practitioner; Referring Provider Physician Assistant; Visit Provider Orthopaedic Surgery | DX: S46.912A Strain of unspecified muscle, fascia and tendon at shoulder and upper arm level, left arm, initial encounter (principal); W19.XXXA Unspecified fall, initial encounter | CPT/HCPCS: 99203 ==

== ENCOUNTER → 2022-08-12 08:52 | Outpatient (BNVA) | payer MEDICAID, SELFPAY | PROVIDERS: PCP Nurse Practitioner; Visit Provider Nurse Practitioner | DX: E03.9 Hypothyroidism, unspecified (principal); E78.2 Mixed hyperlipidemia; I10 Essential (primary) hypertension; E55.9 Vitamin D deficiency, unspecified; E11.65 Type 2 diabetes mellitus with hyperglycemia | CPT/HCPCS: 80053; 80061; 81000; 82306; 84443 ==

== ENCOUNTER → 2022-11-04 09:30 | Outpatient (BNVA) | payer MEDICAID, SELFPAY | PROVIDERS: PCP Nurse Practitioner; Visit Provider Nurse Practitioner | DX: E11.65 Type 2 diabetes mellitus with hyperglycemia (principal) | CPT/HCPCS: 81000 ==

== ENCOUNTER 2022-11-07 07:53 | Day surgery (SDC) | payer MEDICAID, SELFPAY ==
[2022-11-05 10:35] VITALS: BMI 26.7
[2022-11-07 08:07] VITALS: BP 159/88; PULSE 65; RESP 18; TEMP 36.6; O2SAT 97
[2022-11-07] MEDS: sodium chloride 0.9% 1,000 ML 30 ML IV (08:12)
[2022-11-07 08:16] LABS: Glucose Point of Care 89 mg/dL (70-110)
--- NOTE | 2022-11-07 08:16 | P.ANESASSM_ITS ---
Pre-Anesthetic Assessment Height/Weight: Height 1.6 m Weight 68.492 kg Temp Pulse Resp BP Pulse Ox O2 Del Method 97.9 F 65 18 159/88 97 Room Air 11/07/22 08:07 11/07/22 08:07 11/07/22 08:07 11/07/22 08:07 11/07/22 08:07 11/07/22 08:07 Preop Diagnosis: screening Operation Date: 11/07/22 09:00 Proposed Procedures p Colonoscopy 11287,Z12.11(Not Applicable) - Dariusz Vargas DO Familial anesthetic complications: BP issues during last back surgery that cause an ICU admission Was Beta Lenora taken within 24 hours: Yes Was Clonidine taken within 24 hours: N/A Last intake: Intake Last Liquid Date 11/06/22 Last Liquid Time 22:00 Last Solid Date 11/05/22 Last Solid Time 12:00 Social No alcohol and No tobacco Exam alert, oriented x 3, clear to auscultation bilaterally and regular rate & rhythm Airway Submandibular: within normal limits Cervical ROM: within normal limits Mallampati: Class I Dentition: false Pulmonary None reported CV/HEM Hypertension None reported Hepatic None reported GI Gastroesophageal Reflux Disease Metabolic Diabetes Mellitus (II), Hyperlipidemia and Thyroid Disease Musc/skel Fibromyalgia and Lower Back Pain multiple back surgeries Neuropsych Headache Anesthetic Plan ASA status: 2 Anesthesia: MAC Risk of > 500 ml blood loss (7ml/kg in children): No Medications/Allergies Home Medications Medication Instructions Recorded Confirmed Last Taken Type aspirin 81 mg tablet,delayed 81 mg PO DAILY 07/13/19 11/05/22 11/05/22 History release (Aspir-) lancets 33 gauge (OneTouch Delica ##100 01/06/22 11/04/22 Unknown Rx Plus Lancet) diclofenac sodium 1 % topical gel 2 g topical QID #100 grams 05/20/22 11/05/22 11/05/22 Rx (Voltaren Arthritis Pain) blood sugar diagnostic ([employer] #50 ea 08/12/22 11/04/22 Unknown Rx Ultra Test strips) fluticasone propionate 50 1 spray intranasal Q12H PRN 08/12/22 11/05/22 Unknown Rx mcg/actuation nasal allergy symptoms #16 grams spray,suspension (Flonase Allergy Relief) cholecalciferol (vitamin D3) 50 50 mcg PO DAILY 11/04/22 11/05/22 11/05/22 History mcg (2,000 unit) capsule fenofibrate nanocrystallized 145 145 mg PO DAILY #30 tabs 11/04/22 11/05/22 11/05/22 Rx mg tablet (Tricor) levothyroxine 100 mcg tablet 100 mcg PO DAILY #30 tabs 11/04/22 11/05/22 11/07/22 06:30 Rx metoprolol tartrate 25 mg tablet 12.5 mg PO DAILY #15 tabs 11/04/22 11/05/22 11/07/22 06:30 Rx zonisamide 100 mg capsule 100 mg PO Q12H #60 caps 11/04/22 11/05/22 11/05/22 Rx empagliflozin 10 mg tablet 10 mg PO DAILY 11/05/22 11/05/22 11/05/22 History (Jardiance) Allergies Allergy/AdvReac Type Severity Reaction Status Date / Time Sulfa (Sulfonamide Allergy swelling Verified 11/04/22 08:37 Antibiotics) legs morphine AdvReac ADR-Vomitin Verified 11/04/22 08:37 g Current Medications Generic Name Dose Route Start Last Admin Trade Name Freq PRN Reason Stop Dose Admin Sodium Chloride 1,000 mls @ 30 mls/hr 11/07/22 08:00 11/07/22 08:12 Sodium Chloride 0.9% IV 11/08/22 07:59 30 mls/hr .Q24H MICHELLE Administration PFSH Anesthesia Medical History Controlled type 2 diabetes mellitus with hyperglycemia, without long-term current use of insulin Fibromyalgia Gastro-esophageal reflux disease with esophagitis Graves disease History of mammogram 2019 Hypertension Hypothyroidism (acquired) Vitamin D deficiency Surgical History History of back surgery History of carpal tunnel surgery History of colonoscopy 2013 History of hysterectomy Family History Other Diabetes Heart disease Social History Smoking and tobacco status: never smoked Second hand smoke exposure: No Smoking risk assessment/counseling performed?: No Alcohol intake: never Desire information about alcohol rehabilitation?: No Counseling given: No Substance/Drug Use: never Desire information about substance/drug rehabilitation?: No Counseling given: No Adopted: No Caregiver/support person: No Lives independently: Yes Household members: significant other Marital status: service: No Current occupational status: unemployed Do you think of yourself as: Straight/Heterosexual Current gender identity: Female Data Anesthesia Cardiac Studies: No Data to Display
--- NOTE | 2022-11-07 08:32 | PM.HP ---
Providers/Chief Complaint Primary Care Provider: LOUIE Siddiqui Chief Complaint: Z12.11 History of Present Illness Ena Montano is a 62 year old female here for a screening colonoscopy. Her last colonoscopy was over 10 years ago and no polyps were removed, reportedly. She denies any family history of colon cancer, abdominal pain, nausea, emesis, diarrhea, constipation, hematochezia and/or melena Medications/Allergies Home Medications Medication Instructions Recorded Confirmed Last Taken Type aspirin 81 mg tablet,delayed 81 mg PO DAILY 07/13/19 11/05/22 11/05/22 History release (Aspir-) lancets 33 gauge (OneTouch Delica ##100 01/06/22 11/04/22 Unknown Rx Plus Lancet) diclofenac sodium 1 % topical gel 2 g topical QID #100 grams 05/20/22 11/05/22 11/05/22 Rx (Voltaren Arthritis Pain) blood sugar diagnostic (OneTouch #50 ea 08/12/22 11/04/22 Unknown Rx Ultra Test strips) fluticasone propionate 50 1 spray intranasal Q12H PRN 08/12/22 11/05/22 Unknown Rx mcg/actuation nasal allergy symptoms #16 grams spray,suspension (Flonase Allergy Relief) cholecalciferol (vitamin D3) 50 50 mcg PO DAILY 11/04/22 11/05/22 11/05/22 History mcg (2,000 unit) capsule fenofibrate nanocrystallized 145 145 mg PO DAILY #30 tabs 11/04/22 11/05/22 11/05/22 Rx mg tablet (Tricor) levothyroxine 100 mcg tablet 100 mcg PO DAILY #30 tabs 11/04/22 11/05/22 11/07/22 06:30 Rx metoprolol tartrate 25 mg tablet 12.5 mg PO DAILY #15 tabs 11/04/22 11/05/22 11/07/22 06:30 Rx zonisamide 100 mg capsule 100 mg PO Q12H #60 caps 11/04/22 11/05/22 11/05/22 Rx empagliflozin 10 mg tablet 10 mg PO DAILY 11/05/22 11/05/22 11/05/22 History (Jardiance) Allergies Allergy/AdvReac Type Severity Reaction Status Date / Time Sulfa (Sulfonamide Allergy swelling Verified 11/04/22 08:37 Antibiotics) legs morphine AdvReac ADR-Vomitin Verified 11/04/22 08:37 g PFSH Acute PFSH: Medical History (Updated 11/07/22 @ 08:32 by Dariusz Vargas DO) Controlled type 2 diabetes mellitus with hyperglycemia, without long-term current use of insulin Fibromyalgia Gastro-esophageal reflux disease with esophagitis Graves disease History of mammogram 2019 Hypertension Hypothyroidism (acquired) Vitamin D deficiency Surgical History History of back surgery History of carpal tunnel surgery History of colonoscopy 2013 History of hysterectomy Family History Other Diabetes Heart disease Social History Smoking and tobacco status: never smoked Second hand smoke exposure: No Smoking risk assessment/counseling performed?: No Alcohol intake: never Desire information about alcohol rehabilitation?: No Counseling given: No Substance/Drug Use: never Desire information about substance/drug rehabilitation?: No Counseling given: No Adopted: No Caregiver/support person: No Lives independently: Yes Household members: significant other Marital status: service: No Current occupational status: unemployed Do you think of yourself as: Straight/Heterosexual Current gender identity: Female Vitals/I&O/Wt Last Vital Signs Temp 97.9 F 11/07/22 08:07 Pulse 65 11/07/22 08:07 Resp 18 11/07/22 08:07 BP 159/88 11/07/22 08:07 Pulse Ox 97 11/07/22 08:07 O2 Del Method Room Air 11/07/22 08:07 Weight last 48 hrs Weight 151 lb A&P Assessment and plan (1) Colon cancer screening: Plan Screening colonoscopy The risks and benefits of the procedure, including bleeding, infection, intestinal perforation requiring surgery, missed lesion were explained to the patient. The patient is understanding of the risks and wishes to proceed. Attestations Medical Necessity Statement*: Home Coding Level of Care Code Acute Code for Chg Fwd Diagnoses Colon cancer screening Z12.11
[2022-11-07 08:53] VITALS: BP 120/66; PULSE 51; RESP 16; TEMP 36.1; O2SAT 99
[2022-11-07 09:08] VITALS: BP 121/72; PULSE 54; RESP 16; O2SAT 99
[2022-11-07 09:20] VITALS: BP 130/74; PULSE 63; RESP 16; O2SAT 99
--- NOTE | 2022-11-07 14:12 | ANE.PACU2 ---
Inpatient post-anesthesia follow up: Airway intact: Yes Vital signs: Temperature 97 F Pulse Rate 63 Respiratory Rate 16 Blood Pressure 130/74 Pulse Oximetry 99 Oxygen Delivery Me thod Room Air Oxygen Flow Rate Fraction of Inspir ed Oxygen Hydration adequate: Yes Nausea and vomiting: No Pain level: 1 Mental status: Baseline
== END 2022-11-07 09:35 | disposition home or self-care (01) ==
PROVIDERS: PCP Nurse Practitioner; Visit Provider Surgery
PROC: 0DJD8ZZ Inspection of Lower Intestinal Tract, Via Natural or Artificial Opening Endoscopic (ICD-10-PCS; CPT 45378; principal; 2022-11-07 09:00)
DX: Z12.11 Encounter for screening for malignant neoplasm of colon (principal); I10 Essential (primary) hypertension; K21.9 Gastro-esophageal reflux disease without esophagitis; E11.9 Type 2 diabetes mellitus without complications; E78.5 Hyperlipidemia, unspecified; E03.9 Hypothyroidism, unspecified; Z79.82 Long term (current) use of aspirin; Z79.84 Long term (current) use of oral hypoglycemic drugs; E55.9 Vitamin D deficiency, unspecified; K57.30 Diverticulosis of large intestine without perforation or abscess without bleeding
CPT/HCPCS: 36416; 45378; 82962; J2704; J7030

== ENCOUNTER → 2022-12-16 11:38 | Outpatient (BNVA) | payer MEDICAID, SELFPAY | PROVIDERS: PCP Nurse Practitioner; Visit Provider Internal Medicine | DX: R07.89 Other chest pain (principal); I10 Essential (primary) hypertension; E11.65 Type 2 diabetes mellitus with hyperglycemia; Z79.84 Long term (current) use of oral hypoglycemic drugs | CPT/HCPCS: 99204 ==

== ENCOUNTER 2022-12-19 08:03 | Outpatient (CLI) | payer MEDICAID, SELFPAY ==
--- NOTE | 2022-12-19 08:00 | USCV_ITS ---
Ena Montano Age: 62 Gender: F : 1960 Exam Date: 12/19/2022 08:19 Ordering Phys: Demario Naqvi M.D ([email or web address]) Technologist: Anisa Suarez [place] [facility] [place]ication: CP, SOB BP: 134 / 78 HR: 100 Rhythm: Sinus Technical Quality: Good MEASUREMENTS (Male / Female) Normal Values 2D ECHO LV Diastolic Diameter PLAX 4.8 cm 4.2 - 5.9 / 3.9 - 5.3 cm LV Systolic Diameter PLAX 2.5 cm IVS Diastolic Thickness 0.9 cm 0.6 - 1.0 / 0.6 - 0.9 cm IVS Systolic Thickness 1.6 cm LVPW Diastolic Thickness 0.8 cm 0.6 - 1.0 / 0.6 - 0.9 cm LVPW Systolic Thickness 1.9 cm LVOT Diameter 2.1 cm LV Ejection Fraction 2D Teich 78.5 % LV Ejection Fraction MOD 2C 62.6 % LV Ejection Fraction 2C AL 63.9 % LA Diameter 2.7 cm LA Width 2.8 cm LA Height 4.3 cm RA Width 3.1 cm RA Height 3.4 cm Aorta at Sinotubular Diameter 2.5 cm IVC Diameter 1.5 cm M-MODE Aortic Annulus Diameter 2.6 cm LA Ao Ratio MM 1.2 MV E Point Septal Separation 0.5 cm DOPPLER AV Peak Velocity 108.0 cm/s LVOT Peak Velocity 68.0 cm/s AV Area Cont Eq vti 2.4 cm squared AV Area Cont Eq pk 2.1 cm squared MV Peak Velocity 105.0 cm/s MV Area PHT 4.9 cm squared Mitral E to A Ratio 0.9 MV E' Velocity 45.5 cm/s Mitral E to MV E' Ratio 8.0 Mitral E to LV E' Lateral Ratio 8.8 Mitral E to LV E' Septal Ratio 7.3 TR Peak Velocity 113.3 cm/s TR Peak Gradient 5.1 mmHg Right Atrial Pressure 5.0 mmHg Pulmonary Artery Systolic Pressu 10.1 mmHg PV Peak Velocity 80.0 cm/s RV Acceleration Time 0.2 s RV Ejection Time 0.4 s RV AcT/ET 0.4 FINDINGS Left Ventricle Left ventricle is normal in size ventricular systolic function is normal with EF of 55 to 60%. No regional wall motion abnormalities are seen. Grade 1 diastolic dysfunction Right Ventricle Normal in size and function Right Atrium Normal in size Left Atrium Normal in size Mitral Valve Structurally normal mitral valve. Trace mitral regurgitation. Aortic Valve Structurally normal aortic valve. No significant stenosis or regurgitation. Tricuspid Valve Mild tricuspid regurgitation. Insufficient TR jet to calculate RVSP Pulmonic Valve Not well visualized Pericardium Normal Aorta Normal in size IVC Appears to be normal CONCLUSIONS LV systolic function is normal with EF 55 to 60%. Grade 1 diastolic dysfunction Trace mitral regurgitation Mild tricuspid regurgitation No comparison studies are available. Demario Naqvi MD (Electronically Signed) Final Date: 01 January 2023 09:05 S
== END 2022-12-19 08:04 | disposition home or self-care (01) ==
LOC: RAD 08:06
PROVIDERS: PCP Nurse Practitioner; Visit Provider Internal Medicine
DX: R06.02 Shortness of breath (principal); R07.9 Chest pain, unspecified; I07.1 Rheumatic tricuspid insufficiency
CPT/HCPCS: 93306

== ENCOUNTER 2023-01-08 08:10 | Outpatient (CLI) | payer MEDICAID, SELFPAY ==
--- NOTE | 2023-01-08 | ECG_ITS ---
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 Interpretive Statements NAME OF STUDY: LEXISCAN SESTAMIBI STRESS TEST INDICATION: [cp/sob] Procedure: At the baseline, the blood pressure was 121/74 mmHg with a heart rate of 51 bpm. The electrocardiogram showed sinus bradycardia, normal axis with normal ST and T's. The Lexiscan was infused over a period of 20 seconds. A total of 0.4 mg of Lexiscan was infused. The stress phase was continued for a total of 5 minutes. Heart rate was at the end of stress phase was 98 bpm and a blood pressure of 138/69 mmHg. The EKG at the peak infusion revealed normal sinus rhythm with no significant ST-T wave changes. Sestamibi was injected 20 seconds after the Lexiscan infusion. Blood pressure at the end of recovery phase was 133/64 mmHg with a heart rate of 84 bpm. Conclusion: 1. Normal EKG response to Lexiscan infusion 2. No Lexiscan induced chest pain or cardiac arrhythmia. 3. Normal blood pressure and heart rate response. 4. Sestamibi/sestamibi perfusion scan pending; see separate report. Electronically Signed On 01-21-2023 10:33:24 CDT by Demario Naqvi M.D. [email or web address]
[2023-01-08 08:19] VITALS: BMI 26.7
--- NOTE | 2023-01-08 08:35 | NMCV_ITS ---
NM bryon perf SPECT r/s* [id number] Ena Montano Age: 62 Gender: F : 1960 Exam Date: 01/08/2023 09:15 Ordering Phys: Demario Naqvi M.D ([email or web address]) Technologist: MAGDA Danielle Exam Location: [facility] Indications: CHEST PAIN, SHORTNESS OF BREATH STRESS TEST [facility] IMAGE PROTOCOL Rest/Stress 1 Lexiscan Day Radiopharmaceutical Dose (mCi) Administration Site Administered by Rest: Tc-99m 10.8 IV MAGDA Britt Sestamibi Stress:Tc-99m 32.8 IV MAGDA Britt Sestamibi Rest: 08-Jan-2023 60 Discovery 630 Stress: 08-Jan-2023 30 Discovery 630 0.4mg Lexiscan. Images obtained in supine and prone position. SPECT RESULTS Technical Quality: Excellent Raw Data Analysis: Normal Image Corrections: No attenuation or motion correction applied Summed Stress Score: 4 Summed Rest Score: 11 Summed Difference Score: 1 PERFUSION FINDINGS Medium sized area of fixed perfusion defect noted in the inferior and apical baca. This is consistent with medium sized area of prior infarct and LAD and RCA territories. No significant ischemia seen. FUNCTIONAL RESULTS (calculated via Gated SPECT) Stress Image LV EF (%): 85 Stress EDV (mL):75 TID: 1 Stress ESV (mL):11 FUNCTIONAL FINDINGS: There is normal left ventricular systolic function. IMPRESSIONS 1. Medium sized areas of prior infarct seen in LAD and RCA territories. No evidence of ischemia seen 2. LV systolic function is normal. Demario Naqvi MD (Electronically Signed) Final Date: 09 January 2023 18:51 S
[2023-01-08] MEDS: regadenoson 0.4 Mg/5 ml Syringe IVP (09:45)
[2023-01-08] MEDS: ondansetron 2 mg/ML SDV 2 mL 4 MG IVP (10:00)
[2023-01-08 10:04] VITALS: BP 133/64; PULSE 84
== END 2023-01-08 08:11 | disposition home or self-care (01) ==
PROVIDERS: PCP Nurse Practitioner; Visit Provider Internal Medicine
DX: R07.9 Chest pain, unspecified (principal); R06.02 Shortness of breath
CPT/HCPCS: 36415; 78452; 93017; 96374; 96375; A9500; J2405; J2785

== ENCOUNTER → 2023-01-27 08:21 | Outpatient (BNVA) | payer MEDICAID, SELFPAY | PROVIDERS: PCP Nurse Practitioner; Visit Provider Nurse Practitioner | DX: E11.65 Type 2 diabetes mellitus with hyperglycemia (principal); G54.2 Cervical root disorders, not elsewhere classified; E03.9 Hypothyroidism, unspecified; E78.2 Mixed hyperlipidemia | CPT/HCPCS: 80053; 80061; 81000; 83036; 84443 ==

== ENCOUNTER → 2023-02-24 12:34 | Outpatient (BNVA) | payer MEDICAID, SELFPAY | PROVIDERS: PCP Nurse Practitioner; Visit Provider Internal Medicine | DX: I10 Essential (primary) hypertension (principal); E11.65 Type 2 diabetes mellitus with hyperglycemia; Z87.898 Personal history of other specified conditions; Z79.84 Long term (current) use of oral hypoglycemic drugs | CPT/HCPCS: 99214 ==

== ENCOUNTER → 2023-03-02 12:38 | Outpatient (BNVA) | payer MEDICAID, SELFPAY | PROVIDERS: PCP Nurse Practitioner; Visit Provider Emergency Medicine | DX: K52.9 Noninfective gastroenteritis and colitis, unspecified (principal); H60.311 Diffuse otitis externa, right ear | CPT/HCPCS: 87045; 87427; 87449 ==

== ENCOUNTER → 2023-04-21 10:17 | Outpatient (BNVA) | payer MEDICAID, SELFPAY | PROVIDERS: PCP Nurse Practitioner; Visit Provider Nurse Practitioner | DX: E11.9 Type 2 diabetes mellitus without complications (principal) | CPT/HCPCS: 80053; 81000; 83036 ==

== ENCOUNTER 2023-04-30 10:03 | Outpatient (CLI) | payer MEDICAID, SELFPAY ==
--- NOTE | 2023-04-30 10:12 | MM_ITS ---
WS: [id number] SCREENING DIGITAL TOMOSYNTHESIS MAMMOGRAM WITH CAD HISTORY: SCREEN COMPARISON: 04/12/2022 and 06/12/2020 Bilateral CC and MLO with tomosynthesis views submitted. Synthetic mammography reviewed. Computer aid ed detection analyzed. Breast composition: There are scattered areas of fibroglandular density. No suspicious masses, microc alcifications or architectural distortion. IMPRESSION: MM/[place] [id number] BI-RADS: 1-Negative FOLLOW UP: 1 Year Follow-up
== END 2023-04-30 10:04 | disposition home or self-care (01) ==
LOC: RAD 10:03
PROVIDERS: PCP Nurse Practitioner; Visit Provider Nurse Practitioner
DX: Z12.31 Encounter for screening mammogram for malignant neoplasm of breast (principal)
CPT/HCPCS: 77063; 77067

== ENCOUNTER 2023-06-18 23:53 | Emergency (ER) | payer MEDICAID, SELFPAY ==
--- NOTE | 2023-06-18 23:55 | ECG_ITS ---
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 Measurements Intervals [place] Rate: 61 P: 51 OR: 160 QRS: -12 QRSD: 81 T: 38 QT: 400 QTc: 403 Interpretive Statements SINUS RHYTHM Compared to ECG 02/23/2018 09:15:36 Sinus bradycardia no longer present T-wave abnormality no longer present Electronically Signed On 06-19-2023 11:38:57 SAFETY CONSULTANT by Demario Naqvi M.D. [id number] f
--- NOTE | 2023-06-18 23:55 | XRR_ITS ---
PROCEDURE INFORMATION: Exam: XR Chest Exam date and time: 06/19/2023 12:15 AM Age: 63 years old Clinical indication: Chest wall pain; Additional info: Chest pain TECHNIQUE: Imaging protocol: Radiologic exam of the chest. Views: 1 view. COMPARISON: CR XR chest 1V [id number] 02/23/2018 6:44 AM FINDINGS: Lungs: Unremarkable. No consolidation. Pleural spaces: Unremarkable. No pleural effusion. No pneumothorax. Heart/Mediastinum: Unremarkable. No cardiomegaly. Bones/joints: There is moderate degenerative disease the right acromioclavicular joint. XR/XR chest 1V portable [id number] IMPRESSION: No acute cardiopulmonary process.
[2023-06-18 23:58] VITALS: BP 129/67; PULSE 63; RESP 18; TEMP 36.5; O2SAT 97; BMI 25.0
--- NOTE | 2023-06-19 00:33 | W.ED.CHESTPA ---
HPI - Chest Pain General: Chief Complaint: Chest Pain Stated Complaint: CP Time Seen by Provider: 06/18/23 23:54 History of Present Illness: Patient presents to the ER complaining of epigastric chest pain that started approximately around 8 PM. Patient is had 1 episode of vomiting with this. Patient did receive aspirin, nitro and oxygen on route by EMS. Patient states the pain is down to a 2 out of 10 currently. It is more pressure midepigastric lower chest region does not radiate to his not reproducible with palpation. 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 Brennan at 1 point but does not see him regularly. Patient does have high blood pressure and is on valsartan Review of Systems General: Reports: 10 or more systems reviewed and unremarkable except in HPI and below PFSH ED PFSH: Medical History (Updated 06/19/23 @ 02:54 by Nagi Webber DO) Gastro-esophageal reflux disease with esophagitis Controlled type 2 diabetes mellitus with hyperglycemia, without long-term current use of insulin Hypertension Hypothyroidism (acquired) Fibromyalgia Graves disease Vitamin D deficiency History of mammogram 2019 Surgical History History of back surgery History of carpal tunnel surgery History of hysterectomy History of colonoscopy 2013 Family History Other Diabetes Heart disease Social History Smoking and tobacco/nicotine status: never used tobacco/nicotine Second hand smoke exposure: No Alcohol intake: never Substance/Drug Use: never Adopted: No Caregiver/support person: No Lives independently: Yes Household members: significant other Marital status: service: No Current occupational status: unemployed Do you think of yourself as: Straight/Heterosexual Current gender identity: Female Physical Exam Const: COMMON NORMALS: no acute distress, average body habitus, patient oriented x3, no limitations, healthy appearing, alert and well nourished HENMT: COMMON NORMALS: normocephalic, atraumatic, hearing grossly normal bilaterally, external ears normal, Normal external nose present, moist oral mucous membranes and oropharynx normal HEAD & SCALP: normocephalic and atraumatic NOSE: Normal external nose present EXTERNAL EAR: Yes external ears normal Neck/C-Spine: COMMON NORMALS: full ROM, no lymphadenopathy, supple, no meningeal signs, no JVD and Thyroid normal THYROID: Thyroid normal Chest: COMMONS NORMALS: normal inspection of the chest and normal palpation of entire chest wall Resp: COMMON NORMALS: normal respiratory effort, No retractions, No use of accessory muscles and clear to auscultation bilaterally AUSCULTATION: clear to auscultation bilaterally Cardio: COMMON NORMALS: no JVD, regular rate, regular rhythm, S1 normal heart sound present, S2 normal heart sound present, No gallops present (Cardio), No clicks present (Cardio), No murmurs present (Cardio) and No rub (Cardio) RATE: regular rate RHYTHM: regular rhythm HEART SOUNDS: S1 normal heart sound present and S2 normal heart sound present Neuro: COMMON NORMALS: patient oriented x3 SENSORIUM/ORIENTATION: Yes alert MENINGEAL SIGNS: Yes no meningeal signs Course Vital Signs: Vital signs: Vital Signs Temperature 97.7 F 06/18/23 23:58 Pulse Rate 52 L 06/19/23 02:53 Respiratory Rate 18 06/19/23 02:53 Blood Pressure 129/67 06/19/23 01:44 Pulse Oximetry 96 06/19/23 02:53 Oxygen Delivery Me thod Room Air 06/19/23 02:53 MDM - Chest Pain Medical Decision Making Patient presented with epigastric/chest pain. Patient was worked up in normal chest pain fashion with serial EKGs and serial enzymes, all which were essentially benign. Troponin initially of less than 6.0, 2-hour troponin of 6 for delta of essentially 0. Patient has been chest pain-free during her entire time. Is felt patient's pain is not cardiac in nature. Patient be discharged home to follow-up with her PCP. Differential Diagnosis Unlikely acute massive pulmonary embolism, acute respiratory failure, acute myocardial infarction, cardiac arrest or sudden cardiac Medical Records I reviewed the patient's medical records. Lab Data I reviewed the patient's lab results. 06/18/23 00:39 06/18/23 00:39 Radiology Impressions Chest X-Ray 06/18/23 23:55 IMPRESSION: No acute cardiopulmonary process. Laboratory Results WBC 8.07 10^3/uL (3.29-11.43) 06/18/23 00:39 RBC 4.53 10^6/uL (3.85-5.65) 06/18/23 00:39 Hgb 12.80 g/dL (11.27-16.99) 06/18/23 00:39 Hct 41.6 % (36-47) 06/18/23 00:39 MCV 91.8 fl (85-98) 06/18/23 00:39 MCH 28.3 pg (27-33) 06/18/23 00:39 MCHC 30.8 g/dL (30-55) 06/18/23 00:39 RDW 14.1 % (12.1-15.1) 06/18/23 00:39 Plt Count 259 10^3/cmm (157-399) 06/18/23 00:39 MPV 9.8 fL (7.4-10.4) 06/18/23 00:39 Neut % (Auto) 76.3 % 06/18/23 00:39 Lymph % (Auto) 18.1 % 06/18/23 00:39 [place] % (Auto) 3.7 % 06/18/23 00:39 Eos % (Auto) 1.1 % 06/18/23 00:39 Baso % (Auto) 0.6 % 06/18/23 00:39 Neut # (Auto) 6.15 10^3/uL (1.8-7.7) 06/18/23 00:39 Lymph # (Auto) 1.5 10^3/uL (0.8-4.8) 06/18/23 00:39 [place] # (Auto) 0.3 10^3/uL (0.2-0.9) 06/18/23 00:39 Eos # (Auto) 0.1 10^3/uL (0.0-0.8) 06/18/23 00:39 Baso # (Auto) 0.1 10^3/uL (0.0-0.1) 06/18/23 00:39 Nucleated RBC % (auto) 0 % 06/18/23 00:39 Nucleated RBCs # 0.0 /100WBC 06/18/23 00:39 Sodium 141 mmol/L (136-145) 06/18/23 00:39 Potassium 4.2 mmol/L (3.5-5.1) 06/18/23 00:39 Chloride 108 mmol/L (98-107) H 06/18/23 00:39 Carbon Dioxide 20 mmol/L (22-29) L 06/18/23 00:39 Anion Gap 17.2 (5-19) 06/18/23 00:39 BUN 22 mg/dL (8-23) 06/18/23 00:39 Creatinine 0.8 mg/dL (0.5-0.9) 02 00:39 GFR Calculation 72.2 mL/min (90-130) L 06/18/23 00:39 Glucose 135 mg/dL (65-115) H 06/18/23 00:39 Calculated Osmolality 297 mOsm/kg (285-295) H 06/18/23 00:39 Calcium 10.1 mg/dL (8.5-10.5) 06/18/23 00:39 Total Bilirubin 0.2 mg/dL (0.15-1.2) 06/18/23 00:39 AST 17 U/L (0-32) 06/18/23 00:39 ALT 23 U/L (0-33) 06/18/23 00:39 Alkaline Phosphatase 61 U/L (35-105) 06/18/23 00:39 Troponin T Baseline < 6 ng/L (0-10) 06/18/23 00:39 Troponin T 120 Minute 6.00 ng/L (0-10) 06/19/23 02:24 Total Protein 6.9 g/dL (6.6-8.7) 06/18/23 00:39 Albumin 4.2 g/dL (3.5-5.2) 06/18/23 00:39 Globulin 2.7 g/dL (1.3-4.6) 06/18/23 00:39 All radiology interpretation(s) finalized by discharge EKG Data EKG 1: I personally reviewed and interpreted this EKG as follows: EKG interpretation date: 06/18/23 EKG interpretation time: 23:58 Prior EKG tracings: not available for review Interpretation: Ventricular rate 61 bpm, SD interval 160, QRS duration 81, QTc of 402, sinus rhythm, no ST-T wave changes Discharge Plan Discharge Patient Disposition: Home Clinical Impression: Atypical chest pain Condition: Stable Prescriptions: No Action aspirin [Aspir-81] 81 mg tablet,delayed release (DR/EC) 81 mg PO DAILY fluticasone propionate [Flonase Allergy Relief] 50 mcg/actuation spray,suspension 1 spray intranasal Q12H PRN (Reason: allergy symptoms) Qty: 16 0RF Rx Instructions: administer into each nostril Digestive Advantage Advanced 10 billion cell capsule PO (DME) OneTouch Ultra Test Strip See Rx Instructions .Route Qty: 50 5RF Rx Instructions: one daily Jardiance 10 mg tablet 10 mg PO DAILY Qty: 30 5RF fenofibrate nanocrystallized [Tricor] 145 mg tablet 145 mg PO DAILY Qty: 30 5RF (DME) lancets [OneTouch Delica Plus Lancet] 33 gauge misc See Rx Instructions .ROUTE .COMPLEX Qty: 100 5RF Dose Instruction: USE ONCE daily Rx Instructions: USE ONE daily levothyroxine 100 mcg tablet 100 mcg PO DAILY Qty: 30 5RF magnesium oxide 400 mg (241.3 mg magnesium) tablet 400 mg PO DAILY Qty: 30 5RF zonisamide 100 mg capsule 100 mg PO Q12H Qty: 60 5RF valsartan [Diovan] 40 mg tablet 40 mg PO DAILY Qty: 90 1RF cholecalciferol (vitamin D3) 50 mcg (2,000 unit) capsule 50 mcg PO DAILY Patient Comments: OTC diclofenac sodium [Voltaren Arthritis Pain] 1 % gel 2 g topical QID Qty: 100 0RF Rx Instructions: apply to neck and upper back Discharge Orders: Discharge ED (Routine); Ordered 06/19/23 Ordered By: Nagi Webber Referrals: Lorena Coepland, ADJUNCT INSTRUCTOR OF WOMEN'S STUDIES-C [Primary Care Provider] - 1 week Patient Instructions: Noncardiac Chest Pain (ED) Activity Restrictions/Additional Instructions: Your evaluation in ER did not show any cardiac causes of your chest pain. Is felt to be noncardiac in nature. Please follow-up with your primary care physician within the next 7 to 10 days for further evaluation and treatment as needed. If your chest pain returns or worsens please return to the ER for further workup. Coding Level of Care Code ED Director Of Social Media Marketing for Shaneka Crum
[2023-06-19 00:43] LABS: Basophils # 0.1 10^3/uL (0.0-0.1); Basophils % 0.6 %; Eosinophils # 0.1 10^3/uL (0.0-0.8); Eosinophils % 1.1 %; Hematocrit 41.6 % (36-47); Lymphocytes # 1.5 10^3/uL (0.8-4.8); Lymphocytes % 18.1 %; Mean Corpuscular HGB Conc 30.8 g/dL (30-55); Mean Corpuscular Hemoglobin 28.3 pg (27-33); Mean Corpuscular Volume 91.8 fl (85-98); Mean Platelet Volume 9.8 fL (7.4-10.4); Monocytes # 0.3 10^3/uL (0.2-0.9); Monocytes % 3.7 %; Neutrophils # 6.15 10^3/uL (1.8-7.7); Neutrophils % 76.3 %; Nucleated Red Blood Cells % 0 %; Platelet Count 259 10^3/cmm (157-399); Red Blood Count 4.53 10^6/uL (3.85-5.65); Red Cell Distribution Width 14.1 % (12.1-15.1); White Blood Count 8.07 10^3/uL (3.29-11.43)
[2023-06-19 00:54] VITALS: BP 129/67; PULSE 52; RESP 19; O2SAT 98
[2023-06-19 01:00] LABS: Troponin(5th) Baseline < 6 ng/L (0-10)
[2023-06-19 01:02] LABS: Alanine Aminotransferase 23 U/L (0-33); Albumin Level 4.2 g/dL (3.5-5.2); Alkaline Phosphatase 61 U/L (35-105); Aspartate Amino Transferase 17 U/L (0-32); Blood Urea Nitrogen 22 mg/dL (8-23); Calcium 10.1 mg/dL (8.5-10.5); Carbon Dioxide 20 mmol/L (22-29); Chloride 108 mmol/L (98-107); Globulin 2.7 g/dL (1.3-4.6); Glomerular Filtration Rate 72.2 mL/min (90-130); Glucose 135 mg/dL (65-115); Osmolality Calculated 297 mOsm/kg (285-295); Sodium 141 mmol/L (136-145); Total Bilirubin 0.2 mg/dL (0.15-1.2); Total Protein 6.9 g/dL (6.6-8.7)
[2023-06-19 01:10] LABS: Anion Gap 17.2 (5-19); Potassium 4.2 mmol/L (3.5-5.1)
[2023-06-19 01:44] VITALS: BP 129/67; PULSE 48; RESP 20; O2SAT 96
[2023-06-19 02:53] VITALS: PULSE 52; RESP 18; O2SAT 96
[2023-06-19 03:04] LABS: Troponin 5 2HR < 6.0 ng/L (0-10); Troponin 5 2HR Delta 0 ABS# (0-10)
== END 2023-06-19 03:06 | disposition home or self-care (01) ==
PROVIDERS: Emergency Provider Emergency Medicine; PCP Nurse Practitioner
DX: R07.89 Other chest pain (principal); Z79.82 Long term (current) use of aspirin; E11.9 Type 2 diabetes mellitus without complications; I10 Essential (primary) hypertension
CPT/HCPCS: 36415; 71045; 80053; 84484; 85025; 93005; 99285

== ENCOUNTER → 2023-06-30 09:43 | Outpatient (BNVA) | payer MEDICAID, SELFPAY | PROVIDERS: PCP Nurse Practitioner; Visit Provider Nurse Practitioner Family | DX: R05.9 Cough, unspecified (principal) | CPT/HCPCS: 87071; 87880 ==

== ENCOUNTER → 2023-07-07 10:22 | Outpatient (BNVA) | payer MEDICAID, SELFPAY | PROVIDERS: PCP Nurse Practitioner; Visit Provider Nurse Practitioner | DX: E11.9 Type 2 diabetes mellitus without complications (principal) | CPT/HCPCS: 80053; 81000; 83036 ==

== ENCOUNTER → 2023-09-22 10:03 | Outpatient (BNVA) | payer MEDICAID, SELFPAY | PROVIDERS: PCP Nurse Practitioner; Visit Provider Nurse Practitioner | DX: E11.9 Type 2 diabetes mellitus without complications (principal) | CPT/HCPCS: 80053; 81000; 83036 ==

== ENCOUNTER 2023-11-03 07:51 | Outpatient (CLI) | payer MEDICAID, SELFPAY ==
--- NOTE | 2023-11-03 07:55 | FL_ITS ---
WS: [id number] Exam: FL barium swallow [id number] Date/Time of Exam: 11/03/2023 8:31 AM Reason For Exam: DYSPHAGIA, PHARYNGOESOPHAGEAL PHASE/FOREIGN BODY SENSATION Fluoroscopy time: minutes # of spot films: Oropharyngeal phase of swallowing was normal. No aspiration or penetration noted. No esophageal mass or stricture was identified. The esophagus is patent with normal motility. The esophagus is not displ aced. No hiatal hernia or reflux identified during fluoroscopy. FL/FL barium swallow [id number] IMPRESSION: 1. No indication of esophageal mass, stricture or other significant finding.
== END 2023-11-03 07:52 | disposition home or self-care (01) ==
LOC: RAD 07:52
PROVIDERS: PCP Nurse Practitioner; Visit Provider Otolaryngology
DX: R13.14 Dysphagia, pharyngoesophageal phase (principal); R09.A2 Foreign body sensation, throat; K21.9 Gastro-esophageal reflux disease without esophagitis
CPT/HCPCS: 74220

== ENCOUNTER 2023-11-10 09:49 | Outpatient (CLI) | payer MEDICAID, SELFPAY ==
--- NOTE | 2023-11-10 09:59 | FL_ITS ---
WS: [email or web address] FL barium swallow modifd [id number] REASON FOR EXAM: Pharyngoesoph. dysphagia FLUOROSCOPY TIME: 3min [id number] # OF SPOT FILMS: 0 FINDINGS: Examination was supervised by the speech therapy department. With the patient in the sitting upright position and lateral projection, multiple swallows of varying consistency barium were monitored fluoroscopically and video recorded. A detailed report of the swallowing will be rendered by the speech therapy department. FL/FL barium swallow modifd [id number] IMPRESSION: Modified barium swallow as above.
== END 2023-11-10 09:50 | disposition home or self-care (01) ==
LOC: RAD 09:51
PROVIDERS: PCP Nurse Practitioner; Visit Provider Otolaryngology
DX: R13.14 Dysphagia, pharyngoesophageal phase (principal); R09.A2 Foreign body sensation, throat; K21.9 Gastro-esophageal reflux disease without esophagitis
CPT/HCPCS: 74230; 92611

== ENCOUNTER → 2023-12-08 12:48 | Outpatient (BNVA) | payer MEDICAID, SELFPAY | PROVIDERS: PCP Nurse Practitioner; Visit Provider Internal Medicine | DX: R07.9 Chest pain, unspecified (principal); I10 Essential (primary) hypertension; E11.65 Type 2 diabetes mellitus with hyperglycemia; Z79.84 Long term (current) use of oral hypoglycemic drugs | CPT/HCPCS: 99213 ==

== ENCOUNTER → 2023-12-24 08:16 | Outpatient (BNVA) | payer MEDICAID, SELFPAY | PROVIDERS: PCP Nurse Practitioner; Visit Provider Nurse Practitioner Family | DX: R50.9 Fever, unspecified (principal) | CPT/HCPCS: 87400; 87426 ==

== ENCOUNTER 2023-12-31 17:32 | Emergency (ER) | payer MEDICAID, SELFPAY ==
--- NOTE | 2023-12-31 17:34 | XRR_ITS ---
PROCEDURE INFORMATION: Exam: XR Chest Exam date and time: 12/31/2023 6:14 PM Age: 63 years old Clinical indication: Chest wall pain; Additional info: Cp from middle to left side TECHNIQUE: Imaging protocol: Radiologic exam of the chest. Views: 1 view. COMPARISON: CR XR chest 1V portable [id number] 06/19/2023 12:15 AM FINDINGS: Lungs: Unremarkable. No consolidation. Pleural spaces: Unremarkable. No pleural effusion. No pneumothorax. Heart/Mediastinum: Unremarkable. No cardiomegaly. Bones/joints: Mild dextrocurvature of the thoracic spine, similar to prior. No acute osseous findings. XR/XR chest 1V portable [id number] IMPRESSION: No acute cardiopulmonary findings.
--- NOTE | 2023-12-31 17:34 | ECG_ITS ---
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 Measurements Intervals [place] Rate: 81 P: 51 UT: 161 QRS: -39 QRSD: 96 T: 74 QT: 386 QTc: 449 Interpretive Statements SINUS RHYTHM LEFT AXIS DEVIATION [QRS AXIS < -30] LOW QRS VOLTAGE IN PRECORDIAL LEADS [QRS DEFLECTION < 1.0 mV IN CHEST LEADS] PATTERN CONSISTENT WITH PULMONARY DISEASE NONSPECIFIC T-WAVE ABNORMALITY Compared to ECG 06/18/2023 23:58:05 Left-axis deviation now present Low QRS voltage now present T-wave abnormality now present Electronically Signed On 01-01-2024 0:19:45 CDT by Debbie Bunch M.D. [id number]
[2023-12-31 17:40] VITALS: BP 154/87; PULSE 74; RESP 16; TEMP 36.4; O2SAT 97; BMI 25.3
[2023-12-31 17:57] LABS: Basophils # 0.1 10^3/uL (0.0-0.1); Basophils % 0.8 %; Eosinophils # 0.1 10^3/uL (0.0-0.8); Eosinophils % 1.3 %; Hematocrit 41.5 % (36-47); Lymphocytes % 26.2 %; Mean Corpuscular Hemoglobin 28.1 pg (27-33); Mean Corpuscular Volume 87.7 fl (85-98); Mean Platelet Volume 9.4 fL (7.4-10.4); Monocytes # 0.4 10^3/uL (0.2-0.9); Monocytes % 5.6 %; Neutrophils # 5.08 10^3/uL (1.8-7.7); Neutrophils % 65.8 %; Nucleated Red Blood Cells % 0 %; Platelet Count 301 10^3/cmm (157-399); Red Blood Count 4.73 10^6/uL (3.85-5.65); Red Cell Distribution Width 13.4 % (12.1-15.1); White Blood Count 7.71 10^3/uL (3.29-11.43)
[2023-12-31 18:17] LABS: Alanine Aminotransferase 16 U/L (0-33); Albumin Level 4.5 g/dL (3.5-5.2); Alkaline Phosphatase 71 U/L (35-105); Aspartate Amino Transferase 13 U/L (0-32); Blood Urea Nitrogen 16 mg/dL (8-23); Calcium 10.6 mg/dL (8.5-10.5); Carbon Dioxide 23 mmol/L (22-29); Chloride 106 mmol/L (98-107); Creatinine Clr Calc Pharmacy 73.5538; Globulin 3.2 g/dL (1.3-4.6); Glomerular Filtration Rate 84.2 mL/min (90-130); Glucose 132 mg/dL (65-115); Lipase 39 U/L (13-60); Osmolality Calculated 295 mOsm/kg (285-295); Sodium 141 mmol/L (136-145); Total Bilirubin 0.2 mg/dL (0.15-1.2); Total Protein 7.7 g/dL (6.6-8.7)
[2023-12-31 18:20] LABS: Troponin(5th) Baseline < 6 ng/L (0-10)
[2023-12-31 18:52] VITALS: BP 173/84; PULSE 67; RESP 14; O2SAT 98
--- NOTE | 2023-12-31 18:52 | W.ED.CHESTPA ---
HPI - Chest Pain General: Chief Complaint: Chest Pain Stated Complaint: Cp Time Seen by Provider: 12/31/23 17:59 History of Present Illness: Patient presents to the ER today with complaints of chest pain radiating to her back and around to her sides. Patient said this pain started today about 3 PM. Has been constant ever since. She says the pain is worse with inspiration. Patient does have a history of GERD and had caused similar pain to this before but she is on her omeprazole twice a day and has been taking it. She has seen Dr. Naqvi in the past with the last visit being 12/08/2023, last stress test and echo was 01/08/2023. Patient denies any nausea vomiting shortness of breath or diaphoresis. Related Data Home Medications Medication Instructions Recorded Confirmed aspirin 81 mg tablet,delayed 81 mg PO DAILY 07/13/19 12/24/23 release (Aspir-) cholecalciferol (vitamin D3) 50 50 mcg PO DAILY 11/04/22 12/24/23 mcg (2,000 unit) capsule L.acidoph, paracasei,B. lactis 10 cell PO 04/21/23 12/24/23 billion cell capsule (Digestive Advantage Advanced Probiotic) omeprazole 20 mg capsule,delayed 20 mg PO BID 12/08/23 12/24/23 release Previous Rx's Medication Instructions Recorded fluticasone propionate 50 1 spray intranasal Q12H PRN 08/12/22 mcg/actuation nasal allergy symptoms #16 grams spray,suspension (Flonase Allergy Relief) lancets 33 gauge ([facility] Plus Lancet) empagliflozin 10 mg tablet 10 mg PO DAILY #30 tabs 09/22/23 (Jardiance) fenofibrate nanocrystallized 145 145 mg PO DAILY #30 tabs 09/22/23 mg tablet (Tricor) levothyroxine 100 mcg tablet 100 mcg PO .COMPLEX #30 tabs 09/22/23 magnesium oxide 400 mg (241.3 mg 400 mg PO DAILY #30 tabs 09/22/23 magnesium) tablet valsartan 40 mg tablet (Diovan) 40 mg PO DAILY #90 tabs 09/22/23 zonisamide 100 mg capsule 100 mg PO Q12H #60 caps 09/22/23 blood sugar diagnostic ([facility] 12/08/23 Ultra Test strips) benzonatate 200 mg capsule 200 mg PO TID PRN cough #30 caps 12/24/23 buspirone 5 mg tablet 5 mg PO TID PRN anxiety #14 tabs 12/31/23 Allergies Allergy/AdvReac Type Severity Reaction Status Date / Time Sulfa (Sulfonamide Allergy swelling Verified 12/24/23 08:30 Antibiotics) legs morphine AdvReac ADR-Vomitin Verified 12/24/23 08:30 g Review of Systems General: Reports: 10 or more systems reviewed and unremarkable except in HPI and below PFSH ED PFSH: Medical History (Updated 12/31/23 @ 20:16 by Nagi Webber DO) Gastro-esophageal reflux disease with esophagitis Controlled type 2 diabetes mellitus with hyperglycemia, without long-term current use of insulin Hypertension Hypothyroidism (acquired) Fibromyalgia Graves disease Vitamin D deficiency History of mammogram 2018 Surgical History History of back surgery History of carpal tunnel surgery History of hysterectomy History of colonoscopy 2012 Family History Other Diabetes Heart disease Social History Smoking and tobacco/nicotine status: never used tobacco/nicotine Second hand smoke exposure: No Alcohol intake: never Substance/Drug Use: never Adopted: No Caregiver/support person: No Lives independently: Yes Household members: significant other Marital status: service: No Current occupational status: unemployed Do you think of yourself as: Straight/Heterosexual Current gender identity: Female Physical Exam Const: COMMON NORMALS: no acute distress, average body habitus, patient oriented x3, no limitations, healthy appearing, alert and well nourished HENMT: COMMON NORMALS: normocephalic, atraumatic, hearing grossly normal bilaterally, external ears normal, Normal external nose present and moist oral mucous membranes HEAD & SCALP: normocephalic and atraumatic NOSE: Normal external nose present EXTERNAL EAR: Yes external ears normal Neck/C-Spine: COMMON NORMALS: no JVD Chest: COMMONS NORMALS: normal inspection of the chest and normal palpation of entire chest wall Resp: COMMON NORMALS: normal respiratory effort, No retractions, No use of accessory muscles and clear to auscultation bilaterally AUSCULTATION: clear to auscultation bilaterally Cardio: COMMON NORMALS: no JVD, regular rate, regular rhythm, S1 normal heart sound present, S2 normal heart sound present, No gallops present (Cardio), No clicks present (Cardio), No murmurs present (Cardio) and No rub (Cardio) RATE: regular rate RHYTHM: regular rhythm HEART SOUNDS: S1 normal heart sound present and S2 normal heart sound present GI: COMMON NORMALS: Normal to inspection, nondistended, normoactive bowel sounds present, Soft to palpation, non-tender, No hepatosplenomegaly present and no masses PALPATION: Yes Soft to palpation and Yes No hepatosplenomegaly present Neuro: COMMON NORMALS: patient oriented x3 SENSORIUM/ORIENTATION: Yes alert Course Vital Signs: Vital signs: Vital Signs Temperature 97.6 F 12/31/23 17:40 Pulse Rate 57 L 12/31/23 20:30 Respiratory Rate 17 12/31/23 20:30 Blood Pressure 166/76 12/31/23 20:30 Pulse Oximetry 99 12/31/23 20:30 Oxygen Delivery Me thod Room Air 12/31/23 17:40 MDM - Chest Pain Medical Decision Making Patient was given Toradol and Ativan this helped eliminate her pain. Lab work was obtained which was benign as well as x-ray. These results were discussed with the patient. Patient be sent home with medicine for anxiety and told to follow-up with her PCP. Differential Diagnosis Unlikely acute massive pulmonary embolism, acute respiratory failure, acute myocardial infarction, cardiac arrest or sudden cardiac Medical Records I reviewed the patient's medical records. Lab Data I reviewed the patient's lab results. 12/31/23 17:51 12/31/23 17:51 Radiology Impressions Chest X-Ray 12/31/23 17:34 IMPRESSION: No acute cardiopulmonary findings. Laboratory Results WBC 7.71 10^3/uL (3.29-11.43) 12/31/23 17:51 RBC 4.73 10^6/uL (3.85-5.65) 12/31/23 17:51 Hgb 13.30 g/dL (11.27-16.99) 12/31/23 17:51 Hct 41.5 % (36-47) 12/31/23 17:51 MCV 87.7 fl (85-98) 12/31/23 17:51 MCH 28.1 pg (27-33) 12/31/23 17:51 MCHC 32.0 g/dL (30-55) 12/31/23 17:51 RDW 13.4 % (12.1-15.1) 12/31/23 17:51 Plt Count 301 10^3/cmm (157-399) 12/31/23 17:51 MPV 9.4 fL (7.4-10.4) 12/31/23 17:51 Neut % (Auto) 65.8 % 12/31/23 17:51 Lymph % (Auto) 26.2 % 12/31/23 17:51 Archer % (Auto) 5.6 % 12/31/23 17:51 Eos % (Auto) 1.3 % 12/31/23 17:51 Baso % (Auto) 0.8 % 12/31/23 17:51 Neut # (Auto) 5.08 10^3/uL (1.8-7.7) 12/31/23 17:51 Lymph # (Auto) 2.0 10^3/uL (0.8-4.8) 12/31/23 17:51 Archer # (Auto) 0.4 10^3/uL (0.2-0.9) 12/31/23 17:51 Eos # (Auto) 0.1 10^3/uL (0.0-0.8) 12/31/23 17:51 Baso # (Auto) 0.1 10^3/uL (0.0-0.1) 12/31/23 17:51 Nucleated RBC % (auto) 0 % 12/31/23 17:51 Nucleated RBCs # 0.0 /100WBC 12/31/23 17:51 Sodium 141 mmol/L (136-145) 12/31/23 17:51 Potassium 4.0 mmol/L (3.5-5.1) 12/31/23 17:51 Chloride 106 mmol/L (98-107) 12/31/23 17:51 Carbon Dioxide 23 mmol/L (22-29) 12/31/23 17:51 Anion Gap 16.0 (5-19) 12/31/23 17:51 BUN 16 mg/dL (8-23) 12/31/23 17:51 Creatinine 0.7 mg/dL (0.5-0.9) 12/31/23 17:51 GFR Calculation 84.2 mL/min (90-130) L 12/31/23 17:51 Glucose 132 mg/dL (65-115) H 12/31/23 17:51 Calculated Osmolality 295 mOsm/kg (285-295) 12/31/23 17:51 Calcium 10.6 mg/dL (8.5-10.5) H 12/31/23 17:51 Total Bilirubin 0.2 mg/dL (0.15-1.2) 12/31/23 17:51 AST 13 U/L (0-32) 12/31/23 17:51 ALT 16 U/L (0-33) 12/31/23 17:51 Alkaline Phosphatase 71 U/L (35-105) 12/31/23 17:51 Troponin T Baseline < 6 ng/L (0-10) 12/31/23 17:51 Troponin T 120 Minute 6.00 ng/L (0-10) 12/31/23 19:14 Delta Troponin T 0.92198 ABS# (0-10) 12/31/23 19:14 Total Protein 7.7 g/dL (6.6-8.7) 12/31/23 17:51 Albumin 4.5 g/dL (3.5-5.2) 12/31/23 17:51 Globulin 3.2 g/dL (1.3-4.6) 12/31/23 17:51 Lipase 39 U/L (13-60) 12/31/23 17:51 All radiology interpretation(s) finalized by discharge Discharge Plan Discharge Patient Disposition: Home Clinical Impression: Atypical chest pain, Anxiety, generalized Condition: Stable Prescriptions: New buspirone 5 mg tablet 5 mg PO TID PRN (Reason: anxiety) Qty: 14 0RF No Action aspirin [Aspir-81] 81 mg tablet,delayed release (DR/EC) 81 mg PO DAILY fluticasone propionate [Flonase Allergy Relief] 50 mcg/actuation spray,suspension 1 spray intranasal Q12H PRN (Reason: allergy symptoms) Qty: 16 0RF Rx Instructions: administer into each nostril Digestive Advantage Advanced 10 billion cell capsule PO (DME) lancets [OneTouch Delica Plus Lancet] 33 gauge misc See Rx Instructions .ROUTE .COMPLEX Qty: 100 5RF Dose Instruction: USE ONCE daily Rx Instructions: USE ONE daily omeprazole 20 mg capsule,delayed release(DR/EC) 20 mg PO BID (DME) OneTouch Ultra Test Strip See Rx Instructions .Route Qty: 50 5RF Rx Instructions: one daily benzonatate 200 mg capsule 200 mg PO TID PRN (Reason: cough) Qty: 30 2RF cholecalciferol (vitamin D3) 50 mcg (2,000 unit) capsule 50 mcg PO DAILY Patient Comments: OTC fenofibrate nanocrystallized [Tricor] 145 mg tablet 145 mg PO DAILY Qty: 30 5RF levothyroxine 100 mcg tablet 100 mcg PO .COMPLEX Qty: 30 5RF Rx Instructions: 100 mcg orally 6 days week; Jardiance 10 mg tablet 10 mg PO DAILY Qty: 30 5RF magnesium oxide 400 mg (241.3 mg magnesium) tablet 400 mg PO DAILY Qty: 30 5RF valsartan [Diovan] 40 mg tablet 40 mg PO DAILY Qty: 90 1RF zonisamide 100 mg capsule 100 mg PO Q12H Qty: 60 5RF Discharge Orders: Discharge ED (Routine); Ordered 12/31/23 Ordered By: Nagi Webber Referrals: Lorena Copeland, [facility] [Primary Care Provider] - 1 week Patient Instructions: Chest Pain - Noncardiac, Anxiety (ED) Activity Restrictions/Additional Instructions: Your evaluation ER did not reveal any acute cardiac cause of your chest pain. Your chest pain is felt to be noncardiac in nature. A prescription has been sent to your pharmacy for anxiety please take this as directed. Please follow-up with your family practice physician within the next 7 days for further evaluation and treatment. Coding Level of Care Code ED Community Health Advisor for Shaneka Crum
[2023-12-31] MEDS: ketorolac 30 mg/mL INJ IVP (19:11)
--- NOTE | 2023-12-31 19:34 | ECG_ITS ---
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 Measurements Intervals [place] Rate: 59 P: 49 CA: 162 QRS: -32 QRSD: 81 T: 61 QT: 423 QTc: 420 Interpretive Statements SINUS BRADYCARDIA LEFT AXIS DEVIATION [QRS AXIS < -30] LOW QRS VOLTAGE IN PRECORDIAL LEADS [QRS DEFLECTION < 1.0 mV IN CHEST LEADS] PATTERN CONSISTENT WITH PULMONARY DISEASE Compared to ECG 12/31/2023 17:34:04 Sinus rhythm no longer present T-wave abnormality no longer present Electronically Signed On 01-01-2024 0:24:08 CDT by Debbie Bunch M.D. [id number]
[2023-12-31 19:38] LABS: Troponin 5 2HR Delta 0.00001 ABS# (0-10)
[2023-12-31] MEDS: ondansetron 2 mg/ML SDV 2 mL 4 MG IVP (19:45)
[2023-12-31 19:46] VITALS: BP 150/91; PULSE 91; RESP 16; O2SAT 96
[2023-12-31] MEDS: LORazepam 0.5 mg Tablet PO (20:28)
[2023-12-31 20:30] VITALS: BP 166/76; PULSE 57; RESP 17; O2SAT 99
== END 2023-12-31 20:31 | disposition home or self-care (01) ==
PROVIDERS: Emergency Medicine; Emergency Provider Emergency Medicine; PCP Nurse Practitioner
DX: R07.89 Other chest pain (principal); F41.1 Generalized anxiety disorder; Z79.82 Long term (current) use of aspirin; E11.9 Type 2 diabetes mellitus without complications; I10 Essential (primary) hypertension
CPT/HCPCS: 36415; 71045; 80053; 83690; 84484; 85025; 93005; 96374; 96375; 99285; J1885; J2405

== ENCOUNTER → 2024-01-05 10:07 | Outpatient (BNVA) | payer MEDICAID, SELFPAY | PROVIDERS: PCP Nurse Practitioner; Visit Provider Surgery | DX: K21.9 Gastro-esophageal reflux disease without esophagitis (principal); R13.10 Dysphagia, unspecified | CPT/HCPCS: 99214 ==

== ENCOUNTER 2024-01-28 06:47 | Day surgery (SDC) | payer MEDICAID, SELFPAY ==
--- NOTE | 2024-01-28 01:50 | ANES.PREANE2 ---
Pre-Anesthetic Assessment Height/Weight: Height 5 ft 3 in Preop Diagnosis: Difficulty swallowing Operation Date: 01/28/24 08:00 Proposed Procedures p EGD Dilation W/ Balloon - 86525, R13.10(Not Applicable) - Dariusz Vargas, DO Social No alcohol and No tobacco Exam alert, oriented x 3, clear to auscultation bilaterally and regular rate & rhythm Airway Submandibular: within normal limits Cervical ROM: within normal limits Mallampati: Class II Dentition: other (Edentulous) Anesthetic Plan ASA status: 3 Anesthesia: MAC Other: No prior issues with anesthesia NPO since yesterday History of of hypertension, takes valsartan GERD on pantoprazole Fibromyalgia Type 2 diabetes Hypothyroidism on Synthroid Patient does have cervical issues EKG showing sinus bradycardia with a left axis deviation Labs 12/30 reviewed Plan for MAC anesthetic Medications/Allergies Home Medications Medication Instructions Recorded Confirmed Last Taken Type aspirin 81 mg tablet,delayed 81 mg PO DAILY 07/13/19 01/26/24 01/26/24 History release (Aspir-) fluticasone propionate 50 1 spray intranasal Q12H PRN 08/12/22 01/26/24 01/25/23 Rx mcg/actuation nasal allergy symptoms #16 grams spray,suspension (Flonase Allergy Relief) cholecalciferol (vitamin D3) 50 50 mcg PO DAILY 11/04/22 01/26/24 01/27/24 History mcg (2,000 unit) capsule L.acidoph, paracasei,B. lactis 10 1 PO 04/21/23 01/05/24 01/26/24 History billion cell capsule (Digestive Advantage Advanced Probiotic) lancets [facility] ([facility] 04/21/23 01/05/24 Unknown Rx Plus Lancet) empagliflozin 10 mg tablet 10 mg PO DAILY #30 tabs 09/22/23 01/26/24 01/26/24 Rx (Jardiance) fenofibrate nanocrystallized 145 145 mg PO DAILY #30 tabs 09/22/23 01/26/24 01/27/24 Rx mg tablet (Tricor) magnesium oxide 400 mg (241.3 mg 400 mg PO DAILY #30 tabs 09/22/23 01/26/24 01/27/24 Rx magnesium) tablet valsartan 40 mg tablet (Diovan) 40 mg PO DAILY #90 tabs 09/22/23 01/26/24 01/27/24 Rx zonisamide 100 mg capsule 100 mg PO Q12H #60 caps 09/22/23 01/26/24 01/27/24 Rx blood sugar diagnostic (OneTouch #50 ea 12/08/23 01/05/24 Unknown Rx Ultra Test strips) pantoprazole 40 mg tablet,delayed 40 mg PO BID 6 weeks #84 tabs 01/05/24 01/26/24 01/27/24 Rx release (Protonix) levothyroxine 100 mcg tablet 100 mcg PO DAILY 01/26/24 01/26/24 01/28/24 History Allergies Allergy/AdvReac Type Severity Reaction Status Date / Time chin Allergy ADR-Nausea Verified 01/26/24 10:36 Sulfa (Sulfonamide Allergy swelling Verified 01/26/24 10:36 Antibiotics) legs morphine AdvReac ADR-Vomitin Verified 01/26/24 10:36 g PFSH Anesthesia Medical History (Updated 01/08/24 @ 00:01 by NIDHI Watkins) Gastro-esophageal reflux disease with esophagitis Controlled type 2 diabetes mellitus with hyperglycemia, without long-term current use of insulin Hypertension Hypothyroidism (acquired) Fibromyalgia Graves disease Vitamin D deficiency History of mammogram 2019 Surgical History History of back surgery History of carpal tunnel surgery History of hysterectomy History of colonoscopy 2013 Family History Other Diabetes Heart disease Social History Smoking and tobacco/nicotine status: never used tobacco/nicotine Second hand smoke exposure: No Alcohol intake: never Substance/Drug Use: never Adopted: No Caregiver/support person: No Lives independently: Yes Household members: significant other Marital status: service: No Current occupational status: unemployed Do you think of yourself as: Straight/Heterosexual Current gender identity: Female Data Anesthesia Cardiac Studies: Echocardiogram 12/19/22 Sestamibi Stress Test (Cardiology) 01/08/23
[2024-01-28 06:57] VITALS: BMI 25.3
[2024-01-28 07:03] VITALS: BP 156/82; PULSE 67; RESP 18; TEMP 36.4; O2SAT 98
[2024-01-28 07:15] LABS: Glucose Point of Care 95 mg/dL (70-110)
[2024-01-28] MEDS: sodium chloride 0.9% 1,000 ML 30 ML IV (07:15)
--- NOTE | 2024-01-28 07:55 | W.PM.OPSUD ---
Surgery/Procedure H&P Update DATE OF PROCEDURE: January 28, 2024 DATE H&P PERFORMED: 01/05/24 H&P UPDATE INFORMATION: I have reviewed H&P completed within last 30 days, I have examined patient prior to procedure and No changes to prior documentation PREOP DIAGNOSIS: Difficulty swallowing PLANNED PROCEDURE: Operation Date: 01/28/24 08:00 Proposed Procedures p EGD Dilation W/ Balloon - 48477, R13.10(Not Applicable) - Dariusz Vargas, DO
[2024-01-28 08:10] VITALS: BP 99/56; PULSE 54; RESP 16; TEMP 36.1; O2SAT 99
[2024-01-28 08:25] VITALS: BP 111/68; PULSE 58; RESP 18; O2SAT 97
--- NOTE | 2024-01-28 08:41 | ANE.PACU2 ---
Inpatient post-anesthesia follow up: Airway intact: Yes Vital signs: Temperature 97.0 F Pulse Rate 58 Respiratory Rate 18 Blood Pressure 111/68 Pulse Oximetry 97 Oxygen Delivery Me thod Room Air Oxygen Flow Rate Fraction of Inspir ed Oxygen Hydration adequate: Yes Nausea and vomiting: No Pain level: 1 Mental status: Baseline
== END 2024-01-28 08:41 | disposition home or self-care (01) ==
PROVIDERS: PCP Nurse Practitioner; Visit Provider Surgery
DX: R13.10 Dysphagia, unspecified (principal); K22.2 Esophageal obstruction; I10 Essential (primary) hypertension; M79.7 Fibromyalgia; K21.9 Gastro-esophageal reflux disease without esophagitis; Z79.82 Long term (current) use of aspirin
CPT/HCPCS: 36416; 43239; 43249; 82962; 88305; J2704; J7030

== ENCOUNTER → 2024-02-23 13:33 | Outpatient (BNVA) | payer MEDICAID, SELFPAY | PROVIDERS: PCP Nurse Practitioner; Visit Provider Surgery | DX: Z09 Encounter for follow-up examination after completed treatment for conditions other than malignant neoplasm (principal); K21.00 Gastro-esophageal reflux disease with esophagitis, without bleeding; R13.10 Dysphagia, unspecified | CPT/HCPCS: 81000; 82043; 99214 ==

== ENCOUNTER → 2024-04-16 16:16 | Outpatient (BNVA) | payer MEDICAID, SELFPAY | PROVIDERS: PCP Nurse Practitioner | DX: M54.50 Low back pain, unspecified (principal) | CPT/HCPCS: 81000 ==

== ENCOUNTER → 2024-04-26 08:45 | Outpatient (BNVA) | payer MEDICAID, SELFPAY | PROVIDERS: PCP Nurse Practitioner; Visit Provider Nurse Practitioner | DX: E11.65 Type 2 diabetes mellitus with hyperglycemia (principal); E78.2 Mixed hyperlipidemia; E55.9 Vitamin D deficiency, unspecified | CPT/HCPCS: 80053; 80061; 81000; 82306; 83036; 84443; 85025 ==

== ENCOUNTER 2024-05-19 09:01 | Outpatient (CLI) | payer MEDICAID, SELFPAY ==
--- NOTE | 2024-05-19 09:08 | MM_ITS ---
WS: [id number] BILATERAL SCREENING DIGITAL TOMOSYNTHESIS MAMMOGRAM WITH CAD HISTORY: Z12.31 - Encounter for screening mammogram for malignant ... COMPARISON: 04/30/2023, 04/12/2022 Bilateral CC and MLO views with tomosynthesis and synthetic mammography submitted. Computer aided det ection analyzed. Breast composition: There are scattered areas of fibroglandular density. No suspicious masses, microc alcifications or architectural distortion. MM/MM scr tomosynthesis [id number] IMPRESSION: BI-RADS: 1 - Negative. FOLLOW UP: 1 Year Follow-up
== END 2024-05-19 09:02 | disposition home or self-care (01) ==
LOC: RAD 09:02
PROVIDERS: PCP Nurse Practitioner; Visit Provider Nurse Practitioner
DX: Z12.31 Encounter for screening mammogram for malignant neoplasm of breast (principal); R92.323 Mammographic fibroglandular density, bilateral breasts
CPT/HCPCS: 77063; 77067

== ENCOUNTER 2024-05-20 20:59 | Emergency (ER) | payer MEDICAID, SELFPAY ==
[2024-05-20 21:03] VITALS: BP 124/77; PULSE 115; RESP 18; TEMP 36.6; O2SAT 98
--- NOTE | 2024-05-20 21:14 | W.ED.NAVMDI ---
HPI - Nausea/Vomiting/Diarrhea General: Chief complaint: Nausea/Vomiting/Diarrhea Stated complaint: N/V Time Seen by Provider: 05/20/24 21:04 History of Present Illness: 64-year-old female presents emergency room with nausea and vomiting. She presents by ambulance. Her family member also presented by ambulance just prior to her with the same symptoms. No focal abdominal pain. Just nausea and vomiting all day. No altered mental status. No fevers. Related Data Home Medications Medication Instructions Recorded Confirmed aspirin 81 mg tablet,delayed 81 mg PO DAILY 07/13/19 04/26/24 release (Aspir-) cholecalciferol (vitamin D3) 50 50 mcg PO DAILY 11/04/22 04/26/24 mcg (2,000 unit) capsule L.acidoph, paracasei,B. lactis 10 1 PO 04/21/23 04/26/24 billion cell capsule (Digestive Advantage Advanced Probiotic) Previous Rx's Medication Instructions Recorded fluticasone propionate 50 1 spray intranasal Q12H PRN 08/12/22 mcg/actuation nasal allergy symptoms #16 grams spray,suspension (Flonase Allergy Relief) blood sugar diagnostic (GetMaiduch #50 ea 12/08/23 Ultra Test strips) empagliflozin 10 mg tablet 10 mg PO DAILY #30 tabs 02/23/24 (Jardiance) fenofibrate nanocrystallized 145 145 mg PO DAILY #30 tabs 02/23/24 mg tablet (Tricor) lancets 33 gauge (GetMaiduch Delica #100 ea 02/23/24 Plus Lancet) levothyroxine 100 mcg tablet 100 mcg PO .COMPLEX #30 tabs 02/23/24 magnesium oxide 400 mg (241.3 mg 400 mg PO DAILY #30 tabs 02/23/24 magnesium) tablet pantoprazole 40 mg tablet,delayed 40 mg PO DAILY 1 month #84 tabs 02/23/24 release (Protonix) valsartan 40 mg tablet (Diovan) 40 mg PO DAILY #90 tabs 02/23/24 zonisamide 100 mg capsule 100 mg PO Q12H #60 caps 02/23/24 baclofen 20 mg tablet 20 mg PO TID 5 days #15 tabs 04/16/24 ondansetron 8 mg disintegrating 8 mg PO Q6H #14 tabs 05/20/24 tablet promethazine 12.5 mg rectal 12.5 mg IN Q6H PRN nausea and 05/20/24 suppository vomiting #4 ea Allergies Allergy/AdvReac Type Severity Reaction Status Date / Time chin Allergy ADR-Nausea Verified 04/26/24 08:23 Sulfa (Sulfonamide Allergy swelling Verified 04/26/24 08:23 Antibiotics) legs morphine AdvReac ADR-Vomitin Verified 04/26/24 08:23 g Review of Systems Narrative: Constitutional symptoms: Negative except as documented in HPI. Skin symptoms: Negative except as documented in HPI. Eye symptoms: Negative except as documented in HPI. ENMT symptoms: Negative except as documented in HPI. Respiratory symptoms: Negative except as documented in HPI. Cardiovascular symptoms: Negative except as documented in HPI. Gastrointestinal symptoms: Negative except as documented in HPI. Genitourinary symptoms: Negative except as documented in HPI. Musculoskeletal symptoms: Negative except as documented in HPI. Neurologic symptoms: Negative except as documented in HPI. Psychiatric symptoms: Negative except as documented in HPI. Endocrine symptoms: Negative except as documented in HPI. PFSH ED PFSH: Medical History (Updated 05/20/24 @ 23:20 by Thea Mcbride MD) Gastro-esophageal reflux disease with esophagitis Controlled type 2 diabetes mellitus with hyperglycemia, without long-term current use of insulin Hypertension Hypothyroidism (acquired) Fibromyalgia Graves disease Vitamin D deficiency History of mammogram 2019 Surgical History History of back surgery History of carpal tunnel surgery History of hysterectomy History of colonoscopy 2013 Family History Other Diabetes Heart disease Social History Smoking and tobacco/nicotine status: never used tobacco/nicotine Second hand smoke exposure: No Alcohol intake: never Substance/Drug Use: never Adopted: No Caregiver/support person: No Lives independently: Yes Household members: significant other Marital status: service: No Current occupational status: unemployed Do you think of yourself as: Straight/Heterosexual Current gender identity: Female Physical Exam Narrative: EXAM NARRATIVE: General: Alert, no acute distress. Skin: Warm, dry. Head: Normocephalic, atraumatic. Neck: Supple, trachea midline. Eye: Extraocular movements are intact. Ears, nose, mouth and throat: Dry oral mucosa Cardiovascular: Regular, tachycardic, normal peripheral perfusion. Respiratory: Lungs are clear to auscultation, respirations are non-labored, breath sounds are equal, Symmetrical chest wall expansion. Gastrointestinal: Soft, Nontender, Non distended Musculoskeletal: Normal ROM, no deformity. Neurological: Alert and oriented, No focal neurological deficit observed. Psychiatric: Cooperative, appropriate mood & affect. Course Vital Signs: Vital signs: Vital Signs Temperature 97.9 F 05/20/24 21:03 Pulse Rate 75 05/20/24 23:54 Respiratory Rate 16 05/20/24 22:46 Blood Pressure 124/77 05/20/24 23:54 Pulse Oximetry 94 05/20/24 23:54 MDM - Nausea/Vomiting/Diarrhea Medical Decision Making Medical decision making: Differential diagnosis for this patient with nausea and vomiting including but not limited to and based on the above HPI, review of systems and physical exam: Urinary tract infection. Appendicitis. Cholecystis. colitis. small bowel obstruction. crohn's flare. pancreatitis. gastritis. peptic ulcer. cyclic vomiting. Viral illness. Influenza. COVID. - Workup - labwork and imaging ordered to evaluate, rule in and rule out above pathologies. Lab Review: Laboratory results were reviewed and interpreted by myself the emergency room physician. No leukocytosis. No anemia. Mild elevation in her BUN. Urinalysis is very concentrated. But does not appear infected. Respiratory panel is positive for enterovirus I reviewed the patient's medical record. Reexamination: Patient is much improved. Heart rate is improved. Blood pressure is stable. No altered mental status. She is tolerating fluids. Assessment and plan: Viral gastroenteritis Dehydration Enterovirus ? IV normal saline bolus sent to doses of IV Zofran. Tolerating fluids. - Discharged home - Discussed plan with patient. Answered any questions. - Evaluation and treatment of this problem were appropriate in the emergency setting. Lab Data 05/20/24 21:11 05/20/24 21:11 Laboratory Results WBC 7.84 10^3/uL (3.29-11.43) 05/20/24 21:11 RBC 5.51 10^6/uL (3.85-5.65) 05/20/24 21:11 Hgb 15.30 g/dL (11.27-16.99) 05/20/24 21:11 Hct 48.6 % (36-47) H 05/20/24 21:11 MCV 88.2 fl (85-98) 05/20/24 21:11 MCH 27.8 pg (27-33) 05/20/24 21:11 MCHC 31.5 g/dL (30-55) 05/20/24 21:11 RDW 13.2 % (12.1-15.1) 05/20/24 21:11 Plt Count 232 10^3/cmm (157-399) 05/20/24 21:11 MPV 9.8 fL (7.4-10.4) 05/20/24 21:11 Neut % (Auto) 93.2 % 05/20/24 21:11 Lymph % (Auto) 4.3 % 05/20/24 21:11 Ogle % (Auto) 1.7 % 05/20/24 21:11 Eos % (Auto) 0.0 % 05/20/24 21:11 Baso % (Auto) 0.5 % 05/20/24 21:11 Neut # (Auto) 7.31 10^3/uL (1.8-7.7) 05/20/24 21:11 Lymph # (Auto) 0.3 10^3/uL (0.8-4.8) L 05/20/24 21:11 Ogle # (Auto) 0.1 10^3/uL (0.2-0.9) L 05/20/24 21:11 Eos # (Auto) 0.0 10^3/uL (0.0-0.8) 05/20/24 21:11 Baso # (Auto) 0.0 10^3/uL (0.0-0.1) 05/20/24 21:11 Nucleated RBC % (auto) 0 % 05/20/24 21: Nucleated RBCs # 0.0 /100WBC 05/20/24 21:11 Sodium 144 mmol/L (136-145) 05/20/24 21:11 Potassium 4.2 mmol/L (3.5-5.1) 05/20/24 21:11 Chloride 107 mmol/L (98-107) 05/20/24 21:11 Carbon Dioxide 19 mmol/L (22-29) L 05/20/24 21:11 Anion Gap 22.2 (5-19) H 05/20/24 21:11 BUN 27 mg/dL (8-23) H 05/20/24 21:11 Creatinine 0.9 mg/dL (0.5-0.9) 05/20/24 21:11 GFR Calculation 62.8 mL/min (90-130) L 05/20/24 21:11 Glucose 139 mg/dL (65-115) H 05/20/24 21:11 Calculated Osmolality 305 mOsm/kg (285-295) H 05/20/24 21:11 Lactic Acid 1.8 mmol/L (0.5-2.2) 05/20/24 21: Calcium 11.2 mg/dL (8.5-10.5) H 05/20/24 21:11 Total Bilirubin 0.4 mg/dL (0.15-1.2) 05/20/24 21:11 AST 27 U/L (0-32) 05/20/24 21: ALT 32 U/L (0-33) 05/20/24 21:11 Alkaline Phosphatase 81 U/L (35-105) 05/20/24 21:11 C-Reactive Protein 17.5 mg/L (0.0-4.9) H 05/20/24 21:11 Total Protein 7.9 g/dL (6.6-8.7) 05/20/24 21:11 Albumin 4.7 g/dL (3.5-5.2) 05/20/24 21: Globulin 3.2 g/dL (1.3-4.6) 05/20/24 21:11 Lipase 13 U/L (13-60) 05/20/24 21: Urine Color Yellow (Yellow) 05/20/24 21: Urine Appearance Clear (CLEAR) 05/20/24: Urine pH 5.0 (5-7) 05/20/24: Ur Specific Drifting 1.037 (1.005-1.030) H 05/20/24 21: Urine Protein Negative (Negative) 05/20/24: Urine Glucose (UA) 3+ (Normal) H 05/20/24 21: Urine Ketones 2+ (Negative) H 05/20/24 21: Urine Blood Negative (Negative) 05/20/24 21: Urine Nitrate Negative (Negative) 05/20/24 21: Urine Bilirubin Negative (Negative) 05/20/24 21: Urine Urobilinogen 1.0 mg/dL (Negative) 05/20/24 21: Ur Leukocyte Esterase Negative (Negative) 05/20/24 21: Urine RBC 0-2 /hpf (0-2) 05/20/24 21: Urine WBC 0-5 /hpf (0-5) 05/20/24 21: Ur Squamous Epith Cells 0-5 /hpf (0-5) 05/20/24 21: Amorphous Sediment Not Reportable 05/20/24 21: Urine Bacteria None seen /hpf (NONE) 05/20/24 21: Hyaline Casts 1.21 /lpf 05/20/24 21: Adenovirus (PCR) Not detected (NOT DETECT) 05/20/24 21: C. pneumoniae DNA (PCR) Not detected (NOT DETECT) 05/20/24 21: Coronavirus 229E (PCR) Not detected (NOT DETECT) 05/20/24 21: Human Metapneumovir PCR Not detected (NOT DETECT) 05/20/24 21: Influenza A (H1) PCR Not detected (NOT DETECT) 05/20/24 21: Influ A (H1/09) PCR Not detected (NOT DETECT) 05/20/24 21: Influenza A (H3) PCR Not detected (NOT DETECT) 05/20/24 21: Influenza Type A (PCR) Not detected (NOT DETECT) 05/20/24 21: Influenza Type B (PCR) Not detected (NOT DETECT) 05/20/24 21: M. pneumoniae (PCR) Not detected (NOT DETECT) 05/20/24 21: Parainfluenza 1 (PCR) Not detected (NOT DETECT) 05/20/24 21: Parainfluenza 2 (PCR) Not detected (NOT DETECT) 05/20/24 21: Parainfluenza 3 (PCR) Not detected (NOT DETECT) 05/20/24 21: Parainfluenza 4 (PCR) Not detected (NOT DETECT) 05/20/24 21: RSV Type A (PCR) Not detected (NOT DETECT) 05/20/24 21:31 RSV Type B (PCR) Not detected (NOT DETECT) 05/20/24 21:31 Entero/Rhino (PCR) Detected (NOT DETECT) A 05/20/24 21:31 SARS-CoV-2 (PCR) Not detected (NOT DETECT) 05/20/24 21:31 No radiology studies performed this visit Discharge Plan Discharge Patient Disposition: Home Clinical Impression: Gastroenteritis, Dehydration Condition: Stable Prescriptions: New ondansetron 8 mg tablet,disintegrating 8 mg PO Q6H Qty: 14 0RF Rx Instructions: Take 1/2-1 tab every 6 hours as needed for nausea and vomiting No Action aspirin [Aspir-81] 81 mg tablet,delayed release (DR/EC) 81 mg PO DAILY fluticasone propionate [Flonase Allergy Relief] 50 mcg/actuation spray,suspension 1 spray intranasal Q12H PRN (Reason: allergy symptoms) Qty: 16 0RF Rx Instructions: administer into each nostril Digestive Advantage Advanced 10 billion cell capsule 1 PO (DME) OneTouch Ultra Test Strip See Rx Instructions .Route Qty: 50 5RF Rx Instructions: one daily Jardiance 10 mg tablet 10 mg PO DAILY Qty: 30 5RF fenofibrate nanocrystallized [Tricor] 145 mg tablet 145 mg PO DAILY Qty: 30 5RF (DME) lancets [OneTouch Delica Plus Lancet] 33 gauge misc See Rx Instructions .ROUTE .COMPLEX Qty: 100 5RF Dose Instruction: USE ONCE daily Rx Instructions: USE ONE daily levothyroxine 100 mcg tablet 100 mcg PO .COMPLEX Qty: 30 5RF Rx Instructions: 100 mcg orally 6 days week; magnesium oxide 400 mg (241.3 mg magnesium) tablet 400 mg PO DAILY Qty: 30 5RF valsartan [Diovan] 40 mg tablet 40 mg PO DAILY Qty: 90 1RF zonisamide 100 mg capsule 100 mg PO Q12H Qty: 60 5RF cholecalciferol (vitamin D3) 50 mcg (2,000 unit) capsule 50 mcg PO DAILY Patient Comments: OTC pantoprazole [Protonix] 40 mg tablet,delayed release (DR/EC) 40 mg PO DAILY 30 Days Qty: 84 12RF baclofen 20 mg tablet 20 mg PO TID 5 Days Qty: 15 0RF promethazine 12.5 mg suppository 12.5 mg IN Q6H PRN (Reason: nausea and vomiting) Qty: 4 0RF Discharge Orders: Discharge ED (Routine); Ordered 05/20/24 Ordered By: Thea Mcbride Referrals: Lorena Copeland, ELAINAC [Primary Care Provider] - Discharge Diet: Advance as tolerated Discharge Activity: Increase activity as tolerated Patient Instructions: Gastroenteritis (ED), Acute Nausea and Vomiting (ED), Opioid Safety, Pain Management Activity Restrictions/Additional Instructions: Thank you for choosing [facility] for your healthcare needs today. Please realize this is an emergency room and that we are providing you with a medical screening exam and this may not be complete and all inclusive of all the testing and or work up that you may need to determine your ailment or severity of your illness. You have been screened and evaluated and felt safe for discharge. Health conditions do change or evolve sometimes and as such it is important that you follow up with your Primary Doctor to be re checked, 3-5 days is a general good time frame for follow up. 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
[2024-05-20 21:20] LABS: Basophils % 0.5 %; Hematocrit 48.6 % (36-47); Lymphocytes # 0.3 10^3/uL (0.8-4.8); Lymphocytes % 4.3 %; Mean Corpuscular HGB Conc 31.5 g/dL (30-55); Mean Corpuscular Hemoglobin 27.8 pg (27-33); Mean Corpuscular Volume 88.2 fl (85-98); Mean Platelet Volume 9.8 fL (7.4-10.4); Monocytes # 0.1 10^3/uL (0.2-0.9); Monocytes % 1.7 %; Neutrophils # 7.31 10^3/uL (1.8-7.7); Neutrophils % 93.2 %; Nucleated Red Blood Cells % 0 %; Platelet Count 232 10^3/cmm (157-399); Red Blood Count 5.51 10^6/uL (3.85-5.65); Red Cell Distribution Width 13.2 % (12.1-15.1); White Blood Count 7.84 10^3/uL (3.29-11.43)
[2024-05-20] MEDS: ondansetron 2 mg/ML SDV 2 mL 8 MG IVP ×2 (21:23→23:24)
[2024-05-20] MEDS: sodium chloride 0.9% 1,000 ML 999 ML IV (21:23)
[2024-05-20 21:25] VITALS: BP 124/77; PULSE 86; RESP 16; O2SAT 96
[2024-05-20 21:37] LABS: Alanine Aminotransferase 32 U/L (0-33); Albumin Level 4.7 g/dL (3.5-5.2); Alkaline Phosphatase 81 U/L (35-105); Anion Gap 22.2 (5-19); Aspartate Amino Transferase 27 U/L (0-32); Blood Urea Nitrogen 27 mg/dL (8-23); C Reactive Protein 17.5 mg/L (0.0-4.9); Calcium 11.2 mg/dL (8.5-10.5); Carbon Dioxide 19 mmol/L (22-29); Chloride 107 mmol/L (98-107); Globulin 3.2 g/dL (1.3-4.6); Glomerular Filtration Rate 62.8 mL/min (90-130); Glucose 139 mg/dL (65-115); Lipase 13 U/L (13-60); Osmolality Calculated 305 mOsm/kg (285-295); Potassium 4.2 mmol/L (3.5-5.1); Sodium 144 mmol/L (136-145); Total Bilirubin 0.4 mg/dL (0.15-1.2); Total Protein 7.9 g/dL (6.6-8.7)
[2024-05-20 21:38] LABS: Lactic Sepsis W/Reflex 1.8 mmol/L (0.5-2.2)
[2024-05-20 21:39] LABS: Bilirubin Urine Negative (Negative); Blood Urine Negative (Negative); Glucose Urine UA 3+ (Normal); Ketones Urine 2+ (Negative); Leukocyte Esterase Urine Negative (Negative); Nitrate Urine Negative (Negative); Protein Urine Negative (Negative); Urine Appearance Clear (CLEAR); Urine Color Yellow (Yellow)
[2024-05-20 21:43] LABS: Bacteria Urine None Seen /hpf; Hyaline Casts Urine 1.21 /lpf; RBC Urine 0-2 /hpf (0-2); Squamous Epithelial Cell Urine 0-5 /hpf (0-5); WBC Urine 0-5 /hpf (0-5)
[2024-05-20 21:46] LABS: Specific Gravity, Urine 1.037 (1.005-1.030)
[2024-05-20 22:13] VITALS: BP 121/65; PULSE 82; RESP 16; O2SAT 100
[2024-05-20 22:46] VITALS: BP 124/72; RESP 16; O2SAT 95
[2024-05-20 23:22] LABS: Adenovirus Not Detected (NOT DETECT); Chlamydia Pneumoniae Not Detected (NOT DETECT); Coronavirus 229E,HKU1,NL63,OC4 Not Detected (NOT DETECT); Human Metapneumovirus Not Detected (NOT DETECT); Human Rhinovirus/Enterovirus Detected (NOT DETECT); Influenza A Not Detected (NOT DETECT); Influenza A H1 Not Detected (NOT DETECT); Influenza A H1-2009 Not Detected (NOT DETECT); Influenza A H3 Not Detected (NOT DETECT); Influenza B Not Detected (NOT DETECT); Mycoplasma Pneumoniae Not Detected (NOT DETECT); Parainfluenza Virus Type 1 Not Detected (NOT DETECT); Parainfluenza Virus Type 2 Not Detected (NOT DETECT); Parainfluenza Virus Type 3 Not Detected (NOT DETECT); Parainfluenza Virus Type 4 Not Detected (NOT DETECT); Respiratory Syncytial Virus A Not Detected (NOT DETECT); Respiratory Syncytial Virus B Not Detected (NOT DETECT); SARS-COV-2 Not Detected (NOT DETECT)
[2024-05-20 23:54] VITALS: BP 124/77; PULSE 75; O2SAT 94
== END 2024-05-20 23:55 | disposition home or self-care (01) ==
PROVIDERS: Emergency Provider Emergency Medicine; PCP Nurse Practitioner
DX: K52.9 Noninfective gastroenteritis and colitis, unspecified (principal); E86.0 Dehydration; Z11.52 Encounter for screening for COVID-19; Z79.82 Long term (current) use of aspirin; E11.9 Type 2 diabetes mellitus without complications; I10 Essential (primary) hypertension
CPT/HCPCS: 36415; 80053; 81001; 83605; 83690; 85025; 86140; 87040; 87486; 87581; 87633; 96361; 96374; 96375; 99284; J2405; J7030

== ENCOUNTER → 2024-05-25 07:42 | Outpatient (BNVA) | payer MEDICAID, SELFPAY | PROVIDERS: PCP Nurse Practitioner; Referring Provider Nurse Practitioner; Visit Provider Psychiatry & Neurology Neurology | DX: G43.019 Migraine without aura, intractable, without status migrainosus | CPT/HCPCS: 99203 ==

== ENCOUNTER 2024-05-31 11:39 | Outpatient (CLI) | payer MEDICAID, SELFPAY ==
--- NOTE | 2024-05-31 12:15 | MR_ITS ---
WS: [id number] MRI HEAD WITH CONTRAST TECHNIQUE: Sagittal T1, T2 axial, T2 axial FLAIR, axial susceptibility weighted imaging, axial diffus ion weighted images, and coronal T2 images were obtained. Pre and post-T1 axial and post T1 coronal i mages. ADC and FSPGR images. CLINICAL INFORMATION: G43.119 - Migraine with aura, intractable, without status... COMPARISON: MRI 2006 FINDINGS: No evidence of restricted diffusion to suggest acute ischemia. Ventricular system and basal cisterns are patent. A few foci of T2 signal abnormality in the LEFT frontal white matter likely small vessel changes in a patient of this age. No significant parenchymal volume loss. Normal posterior fossa. Nor mal vascular flow voids at the skull base. No extra-axial fluid collections. No evidence of mass or m ass effect. Paranasal sinuses are well aerated. Mastoid air cells are well aerated. Normal posterior nasopharynx. No hemosiderin on susceptibility-weighted images. Normal optic chiasm and pituitary infundibulum. Tem poral lobes and hippocampal formations are normal in appearance. No abnormal gadolinium enhancement. MR/MR head wo/w con [id number] IMPRESSION: 1. No evidence of restricted diffusion to suggest acute ischemia. 2. Few small foci of T2 signal normality in the LEFT frontal lobe likely small vessel changes. No significant parenchymal volume loss. 3. No abnormal gadolinium enhancement. 4. No hemosiderin on the susceptibly weighted images. 5. No other suspicious findings.
[2024-05-31] MEDS: gadobenate dimeglumine 20 mL vial IV (16:06)
== END 2024-05-31 11:40 | disposition home or self-care (01) ==
PROVIDERS: PCP Nurse Practitioner; Visit Provider Psychiatry & Neurology Neurology
DX: G43.119 Migraine with aura, intractable, without status migrainosus (principal); R93.89 Abnormal findings on diagnostic imaging of other specified body structures
CPT/HCPCS: 70553

== ENCOUNTER → 2024-07-12 09:31 | Outpatient (BNVA) | payer MEDICAID, SELFPAY | PROVIDERS: PCP Nurse Practitioner; Visit Provider Nurse Practitioner | DX: E11.65 Type 2 diabetes mellitus with hyperglycemia (principal); E78.2 Mixed hyperlipidemia; E03.9 Hypothyroidism, unspecified; G54.2 Cervical root disorders, not elsewhere classified; I10 Essential (primary) hypertension; F41.1 Generalized anxiety disorder; E55.9 Vitamin D deficiency, unspecified; K21.00 Gastro-esophageal reflux disease with esophagitis, without bleeding; M79.7 Fibromyalgia | CPT/HCPCS: 81000 ==

== ENCOUNTER → 2024-10-12 10:31 | Outpatient (BNVA) | payer MEDICAID, SELFPAY | PROVIDERS: PCP Nurse Practitioner; Visit Provider Nurse Practitioner | DX: I10 Essential (primary) hypertension (principal); E78.2 Mixed hyperlipidemia; E03.9 Hypothyroidism, unspecified; N18.2 Chronic kidney disease, stage 2 (mild) | CPT/HCPCS: 80053; 80061; 81000; 82607; 83735; 84443 ==

== ENCOUNTER 2024-10-21 14:32 | Outpatient (CLI) | payer MEDICAID, SELFPAY ==
--- NOTE | 2024-10-21 15:00 | XR_ITS ---
WS: [id number] SCREENING DEXA SCAN [employer] CLINICAL INFORMATION: Z78.0 - Asymptomatic menopausal state COMPARISON: None. FINDINGS: The L1-L4 bone mineral density measures 1.130 g/cm2. This corresponds to a T score score of -0.4 and Z score of 1.2. Left femoral neck bone mineral density measures 0.806 g/cm2. This corresponds to a T score of -1.6 and Z score of -0.4. Right femoral neck bone mineral density measures 0.794 g/cm2. This corresponds to a T score -1.7of and Z score of -0.5. Mean femoral neck bone mineral density measures 0.800 g/cm2. This corresponds to a T score of -1.6 and Z score of -0.4. XR/XR DEXA axial skeleton* [id number] IMPRESSION: Normal bone mineralization lumbar spine. Osteopenia femoral necks. Patient's FRAX calculated 10 year probability for major osteoporotic fracture i s 23.1% and osteoporotic hip fracture is 3.1%.
== END 2024-10-21 14:33 | disposition home or self-care (01) ==
LOC: RAD 14:32
PROVIDERS: PCP Nurse Practitioner; Visit Provider Nurse Practitioner
DX: Z78.0 Asymptomatic menopausal state (principal); M85.88 Other specified disorders of bone density and structure, other site
CPT/HCPCS: 77080

== ENCOUNTER → 2024-12-06 12:44 | Outpatient (BNVA) | payer MEDICAID, SELFPAY | PROVIDERS: PCP Nurse Practitioner; Visit Provider Internal Medicine | DX: I10 Essential (primary) hypertension (principal); E11.65 Type 2 diabetes mellitus with hyperglycemia; Z79.84 Long term (current) use of oral hypoglycemic drugs | CPT/HCPCS: 99213 ==

== ENCOUNTER → 2025-03-31 08:28 | Outpatient (BNVA) | payer MEDICAID, SELFPAY | PROVIDERS: PCP Nurse Practitioner; Visit Provider Nurse Practitioner | DX: I10 Essential (primary) hypertension (principal); E78.2 Mixed hyperlipidemia; E03.9 Hypothyroidism, unspecified | CPT/HCPCS: 80053; 80061; 81000; 82607; 84443 ==